=== PATIENT | male | born 1985 | race Caucasian/White ===

== ENCOUNTER 2016-05-26 22:31 | Emergency (ER) | payer BC, OTHER ==
[2016-05-26 22:39] VITALS: TEMP 98.3
[2016-05-26] MEDS ORDERED: HYDROcodone/APAP 5-325MG 1 EACH TAB PO STA (22:46)
--- NOTE | 2016-05-26 22:55 | ED ---
Back Pain HPI - General Chief Complaint: Back Pain/Injury Stated Complaint: [facility] Back injury Time Seen by Provider: 05/26/16 22:40 Source: patient, RN notes reviewed Limitations: no limitations - History of Present Illness Initial Comments: 30-year-old male presents to the emergency department with a chief complaint OF LOW BACK PAIN. 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 PATIENT FELT A POP IN HIS BACK. 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 HE WAS PUT ON SOME MUSCLE RELAXERS. PATIENT STATES SHE JUST CONTINUES TO HAVE THE PAIN. PATIENT ENTERS NOW. FALL. 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 PATIENT DENIES ANY LOSS OF BOWEL OR BLADDER FUNCTION. PATIENT DENIES ANY FEVER OR CHILLS. PATIENT STATES HE WAS CONCERNED DUE TO THE PAINS WITHOUT THAT HE SHOULD BE SEEN.Patient denies any recent fever, chills, shortness of breath, chest pain, abdominal pain, nausea vomiting, numbness or tingling, dysuria or hematuria, constipation or diarrhea, headaches or visual changes, or any other current symptoms. - Related Data Home Medications Medication Instructions Recorded Confirmed Carisoprodol [Soma] 350 mg PO TID 05/26/16 05/26/16 Dicyclomine [Bentyl] 20 mg PO BID 05/26/16 05/26/16 Omeprazole 20 mg PO DAILY 05/26/16 05/26/16 Pregabalin [Lyrica] 100 mg PO BID 05/26/16 05/26/16 traMADol HCL [Ultram] 50 mg PO Q4HR PRN 05/26/16 05/26/16 Previous Rx's Medication Instructions Recorded Orphenadrine [Norflex] 100 mg PO Q12H #10 tablet.er 05/26/16 Allergies Allergy/AdvReac Type Severity Reaction Status Date / Time No Known Allergies Allergy Verified 05/26/16 22:51 Review of Systems ROS Statement: Those systems with pertinent positive or pertinent negative responses have been documented in the HPI. ROS Other: All systems not noted in ROS Statement are negative. Past Medical History Past Medical History: No Reported History History of Any Multi-Drug Resistant Organisms: MRSA Date of last positivie culture/infection: 08/2014 MDRO Source:: left AC Additional Past Surgical History / Comment(s): Ear surgrey Past Psychological History: Anxiety Smoking Status: Current every day smoker Past Alcohol Use History: None Reported Past Drug Use History: None Reported General Exam Limitations: no limitations General appearance: alert, in no apparent distress Head exam: Present: atraumatic, normocephalic, normal inspection Neck exam: Present: normal inspection. Absent: tenderness, meningismus, lymphadenopathy Respiratory exam: Present: normal lung sounds bilaterally. Absent: respiratory distress, wheezes, rales, rhonchi, stridor Cardiovascular Exam: Present: regular rate, normal rhythm, normal heart sounds. Absent: systolic murmur, diastolic murmur, rubs, gallop, clicks Extremities exam: Present: normal inspection, full ROM, normal capillary refill. Absent: tenderness, pedal edema, joint swelling, calf tenderness Back exam: Present: normal inspection, full ROM. Absent: tenderness, CVA tenderness (R), CVA tenderness (L), muscle spasm, paraspinal tenderness, vertebral tenderness, rash noted Expanded Back exam: Absent: saddle anesthesia Back exam: Negative Straight Leg Raising: Right, Left Neurological exam: Present: alert, oriented X3, CN II-XII intact. Absent: motor sensory deficit Psychiatric exam: Present: normal affect, normal mood Skin exam: Present: warm, dry, intact, normal color. Absent: rash Course Vital Signs 05/26/16 22:36 Temperature 98.3 F Pulse Rate 6 L Respiratory 18 Rate Blood Pressure 119/60 O2 Sat by Pulse 97 Oximetry Medical Decision Making - Medical Decision Making 30-year-old male presents to the emergency department with a chief complaint of lumbar pain after lifting. The patient denies a complaint of low back pain however he goes from laying down to crossing his legs and sitting up without assistance of the arms without any change in facial recognition. This time is requesting stronger pain medication and tramadol. We discussed that we will add Motrin the anti-inflammatory to the Abbi should help with the symptoms. We did give him follow-up with orthopedic due to the fact that she does have a disc height narrowing that he was informed. Patient stated he understood all cushions were answered. He will be discharged. Disposition Clinical Impression: Strain of lumbar region Disposition: HOME SELF-CARE Condition: Stable Instructions: Acute Low Back Pain (ED) Additional Instructions: Please use medication as discussed. Please follow up with family doctor if symptoms have not improved over the next two days. Please return to the emergency room if your symptoms increase or worsen or for any other concerns. Prescriptions: Orphenadrine [Norflex] 100 mg PO Q12H #10 tablet.er Referrals: Olaf Ronquillo MD [Primary Care Provider] - 1-2 days Sampson Lemon DO [Doctor of Osteopathic Medicine] - 1-2 days Time of Disposition: 23:43
--- NOTE | 2016-05-26 23:37 | XR ---
EXAMINATION TYPE: XR lumbar spine 2 or 3V DATE OF EXAM: 05/26/2016 10:59 PM CLINICAL HISTORY: Lifting injury to the lower back, pain. TECHNIQUE: Frontal, lateral images of the lumbar spine are obtained. COMPARISON: None FINDINGS: There are 5 lumbar type vertebral bodies identified. The lumbar spine shows satisfactory alignment without evidence of acute fracture or dislocation. There is minor disc space narrowing at L5-S1. Body heights are grossly unremarkable. IMPRESSION: 1. No acute fracture or dislocation is seen in the lumbar spine. 2. Minor disc space narrowing at L5- S1.
[2016-05-27 00:21] VITALS: BP 117/62; PULSE 64; RESP 16
== END 2016-05-27 00:16 | disposition home or self-care (01) ==
LOC: EC 22:31
DX: S39.012A Strain of muscle, fascia and tendon of lower back, initial encounter (principal); Z79.899 Other long term (current) drug therapy; F17.200 Nicotine dependence, unspecified, uncomplicated; X50.0XXA Overexertion from strenuous movement or load, initial encounter; Y93.89 Activity, other specified; Y99.0 Civilian activity done for income or pay
CPT/HCPCS: 72100; 99283

== ENCOUNTER → 2016-05-29 | Outpatient (CLI) | payer BC, OTHER ==
--- NOTE | 2016-05-29 16:54 | US ---
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 Left anterior neck palp area GLAND SIZE: Right Lobe: 5.4 x 1.5 x 1.6 cm Overall Parenchyma: homogenous Left Lobe: 5.5 x 4.2 x 3.0 cm Overall Parenchyma: homogeneous Isthmus Thickness: 0.2 cm NODULES RIGHT: # of nodules measured on right: 0 LEFT: # of nodules measured on left: 1 1. 4.2 X 3.8 x 2.4 cm isoechoic solid nodule at the mid pole with well-defined margins. This nodul e is wider than tall and shows intranodular vascularity. ISTHMUS: # of nodules measured in the isthmus: 0 TECHNOLOGIST IMPRESSION: Bilateral neck scanned, no abnormal lymphadenopathy noted. Note: Anterior palpable corresponds with left nodule IMPRESSION: Left thyroid lobe is asymmetrically enlarged in size due to a dominant 4.2 cm isoechoic solid nodule, neoplasm needs to BE excluded, further investigation with ultrasound guided fine-needle aspiration i s advised.
== END | disposition home or self-care (01) ==
LOC: RADUSWWP 07:58
PROVIDERS: ATTEND Family Medicine
DX: E04.9 Nontoxic goiter, unspecified (principal)
CPT/HCPCS: 76536

== ENCOUNTER 2016-06-10 03:14 | Emergency (ER) | payer BC, OTHER ==
--- NOTE | 2016-06-10 03:17 | ED ---
General Adult HPI - General Stated complaint: overdose Time Seen by Provider: 06/10/16 03:15 Source: RN notes reviewed, old records reviewed - History of Present Illness Initial comments: This is a 30-year-old male here for evaluation. Patient presents today for evaluation of overdose. He shows found down by friends and EMS was called the patient's us regarding overdose. Patient's has [place] medical history denies any other drugs or alcohol abuse. At this time patient is awake alert answering [place] questions, denies homicidal or suicidal thoughts, was using [employer] - Related Data Home Medications Medication Instructions Recorded Confirmed Carisoprodol [Soma] 350 mg PO TID PRN 05/26/16 06/06/16 Dicyclomine [Bentyl] 20 mg PO BID 05/26/16 06/06/16 Omeprazole 20 mg PO DAILY 05/26/16 06/06/16 Pregabalin [Lyrica] 100 mg PO BID 05/26/16 06/06/16 LORazepam [Ativan] 2 mg PO BID 06/06/16 06/06/16 Allergies Allergy/AdvReac Type Severity Reaction Status Date / Time No Known Allergies Allergy Verified 05/26/16 22:51 Review of Systems ROS Statement: Those systems with pertinent positive or pertinent negative responses have been documented in the HPI. ROS Other: All systems not noted in ROS Statement are negative. Past Medical History Past Medical History: Thyroid Disorder Additional Past Medical History / Comment(s): palpable nodule of thyroid History of Any Multi-Drug Resistant Organisms: MRSA Date of last positivie culture/infection: 08/2014 MDRO Source:: left AC Additional Past Surgical History / Comment(s): Ear surgrey Past Psychological History: Anxiety Additional Psychological History / Comment(s): anxiety disorder Smoking Status: Current every day smoker Past Alcohol Use History: None Reported Past Drug Use History: None Reported General Exam General appearance: alert, in no apparent distress Head exam: Present: atraumatic, normocephalic, normal inspection Eye exam: Present: normal appearance, PERRL, EOMI. Absent: scleral icterus, conjunctival injection, periorbital swelling ENT exam: Present: normal exam, mucous membranes moist Neck exam: Present: normal inspection. Absent: tenderness, meningismus, lymphadenopathy Respiratory exam: Present: normal lung sounds bilaterally. Absent: respiratory distress, wheezes, rales, rhonchi, stridor Cardiovascular Exam: Present: regular rate, normal rhythm, normal heart sounds. Absent: systolic murmur, diastolic murmur, rubs, gallop, clicks GI/Abdominal exam: Present: soft, normal bowel sounds. Absent: distended, tenderness, guarding, rebound, rigid Extremities exam: Present: normal inspection, full ROM, normal capillary refill. Absent: tenderness, pedal edema, joint swelling, calf tenderness Back exam: Present: normal inspection Neurological exam: Present: alert, oriented X3, CN II-XII intact Psychiatric exam: Present: normal affect, normal mood Skin exam: Present: warm, dry, intact, normal color. Absent: rash Course - Reevaluation(s) Reevaluation #1: 06/10/16 03:16 Patient remains awake and alert, oriented, normal vital signs throughout hospital stay of breath Medical Decision Making - Medical Decision Making Plan now the ER status post overdose, was given Narcan, patient is awake alert remains awake alert denies any other drugs or any other substance abuse, patient not homicidal or suicidal and can be discharged home Disposition Clinical Impression: Heroin overdose Disposition: HOME SELF-CARE Condition: Good Instructions: Narcotic Abuse (ED) Referrals: Naren Castro MD [Primary Care Provider] - 1-2 days
[2016-06-10 03:18] VITALS: BP 138/94; PULSE 67; RESP 18; TEMP 97.8
== END 2016-06-10 03:56 | disposition home or self-care (01) ==
LOC: EC 03:14
DX: T40.1X1A Poisoning by heroin, accidental (unintentional), initial encounter (principal); R40.20 Unspecified coma; F41.9 Anxiety disorder, unspecified; F17.200 Nicotine dependence, unspecified, uncomplicated; Z79.899 Other long term (current) drug therapy; Z86.14 Personal history of Methicillin resistant Staphylococcus aureus infection
CPT/HCPCS: 99284

== ENCOUNTER 2016-06-16 12:31 | Day surgery (SDC) | payer BC, OTHER ==
[2016-06-16] MEDS ORDERED: ALPRAZolam 0.5 MG TAB PO STA (13:36)
[2016-06-16 14:10] VITALS: PULSE 81; RESP 14
[2016-06-16 14:28] VITALS: BP 110/63
--- NOTE | 2016-06-16 15:00 | US ---
EXAMINATION TYPE: US FNA thyroid DATE OF EXAM: 06/16/2016 2:29 PM COMPARISON: NONE HISTORY: Thyroid nodule, E04.1 Maximal barrier technique was utilized. Ultrasound using sterile technique. The skin overlying the no dule was localized with ultrasound and the overlying skin prepped and draped. Lidocaine used for loca l anesthesia. 5 passes with a 25-gauge needle were made into the nodule under ultrasound guidance. As pirate specimen submitted to cytology. Following the procedure hemostasis achieved. No immediate comp lication IMPRESSION: Status post ultrasound-guided fine-needle aspiration of thyroid nodule, pathology pending .
== END 2016-06-16 14:38 | disposition home or self-care (01) ==
LOC: RADPROMAIN 12:31
PROVIDERS: ATTEND Surgery
DX: E04.1 Nontoxic single thyroid nodule (principal)
CPT/HCPCS: 10022; 76942; 84439; 84443; 84481; 88173; 88305

== ENCOUNTER → 2016-06-27 | Outpatient (CLI) | payer BC, OTHER ==
--- NOTE | 2016-06-27 17:06 | CT ---
EXAMINATION TYPE: CT soft tissue neck w con DATE OF EXAM: 06/27/2016 1:24 PM COMPARISON: NONE HISTORY: Thyroid CA CT DLP: 719 mGycm CONTRAST: Patient injected with 100 ml mL of Omnipaque 300. TECHNIQUE: Axial images at 3 mm thick sections. Reconstructed images in the coronal plane and sagitt al plane are reviewed. FINDINGS: Limited CT sections are obtained the lung apices. The lung apices appear clear. CT neck: The torus tubarius and fossa of Rosenmuller are normal. Punch Card Operator spaces are normal. Para nasal sinuses and mastoid air cells are clear. Parotid glands appear normal and symmetrical. Left submandibular gland appears normal. Right submandi bular gland may be somewhat full. Parapharyngeal spaces are normal. No suspicious adenopathy is evid ent. There are a few small submental lymph nodes present. The hypopharynx appears within normal limits. Vocal cord level appear symmetrical. Left lobe thyroid is enlarged and slightly heterogenous. This could correlate with the patient's thyr oid cancer. This correlates with the level of the BB. No supraclavicular adenopathy is evident. Osseous structures are normal. IMPRESSIONS: 1. Enlarged left lobe thyroid corresponds to the palpable marker within the low left neck. By history the patient has thyroid cancer with recent fine-needle biopsy 06/16/2016. Slight diffuse fullness in otherwise normal-appearing right submandibular gland.
== END ==
LOC: RADCTMAIN 12:46
PROVIDERS: ATTEND Surgery
DX: E04.9 Nontoxic goiter, unspecified (principal); C73 Malignant neoplasm of thyroid gland
CPT/HCPCS: 70491; Q9967

== ENCOUNTER → 2016-06-27 | Outpatient (CLI) | payer BC, OTHER ==
--- NOTE | 2016-06-27 15:00 | US ---
EXAMINATION TYPE: US venous doppler duplex LE RT DATE OF EXAM: 06/27/2016 2:14 PM COMPARISON: NONE CLINICAL HISTORY: I80.9 PHLEBITIS. Grayscale, color Doppler, spectral Doppler imaging performed of the deep veins of the right lower ext remity. Right common femoral, superficial femoral, popliteal veins all compress normally and show no abnormal luminal echoes. Venous waveforms are normal. IMPRESSION: No evident deep venous thrombosis involving the right lower extremity, follow-up as beth cated
== END | disposition home or self-care (01) ==
LOC: RADUSMAIN 12:37
PROVIDERS: ATTEND Orthopaedic Surgery
DX: I80.9 Phlebitis and thrombophlebitis of unspecified site (principal)

== ENCOUNTER 2016-07-29 07:47 | Observation (INO) | payer BC, OTHER ==
[2016-07-21 10:34] VITALS: BMI 26.1
[~2016-07-29 07:47] MED LIST: DEXAMETHASONE SOD PHOSPHATE 10 MG/ML 1 ML VIAL IV ONE; HEPARIN SODIUM,PORCINE 5,000 UNIT/ML 1 ML VIAL SQ ONE; LIDOCAINE 1% 20 ML VIAL (10MG/ML) FOR IV START INTRADERMA PRN; ONDANSETRON 4 MG/2 ML VIAL IVP ONE; Pre Op ABX Message 1 EACH MISC MISCELLANE ONE; SCOPOLAMINE 1.5MG/72HR PATCH TRANSDERM ONE
[2016-07-29] MEDS: LACTATED RINGERS 1,000 ML IV SCH (08:15)
[2016-07-29] MEDS ORDERED: HEPARIN SODIUM,PORCINE 5,000 UNIT/ML 1 ML VIAL SQ ONE (09:02)
[2016-07-29] MEDS ORDERED: PHENYLEPHRINE-0.9% NACL SYG 1 MG/10 ML SYRINGE ONE (09:04)
[2016-07-29] MEDS ORDERED: KETAMINE 10 MG/ML 20 ML VIAL ONE (09:04)
[2016-07-29] MEDS ORDERED: SUCCINYLCHOLINE CHLORIDE 100 MG/5 ML SYR IV ONE (09:04)
[2016-07-29] MEDS ORDERED: MIDAZOLAM 2 MG/2 ML VIAL ONE (09:04)
[2016-07-29] MEDS ORDERED: LIDOCAINE 1% INJ 10MG/ML (20 ML MDV) ONE (09:04)
[2016-07-29] MEDS ORDERED: GLYCOPYRROLATE 0.2 MG/ML 2 ML VIAL ONE (09:04)
[2016-07-29] MEDS ORDERED: HYDROmorphone (PF) 1 MG/ML ONE (09:04)
[2016-07-29] MEDS ORDERED: PROPOFOL 10 MG/ML 20 ML VIAL IV ONE (09:04)
[2016-07-29] MEDS ORDERED: fentaNYL (PF) 50 MCG/ML 2 ML AMP ONE (09:04)
--- NOTE | 2016-07-29 09:06 | P.PN ---
Progress Note - Text I have had a discussion with patient regarding his voice. He states that he has had no recent voice changes. We talked again about him potentially seen in ENT doctor preoperative to evaluate the vocal cords and he states he has not had any recent voice changes and did not want this to be done. He understands the risks and benefits of the procedure. The risks include bleeding and infection reaction to the anesthetic injury to recurrent laryngeal nerve and parathyroids. He wishes to proceed with the surgery. We will start with a left -sided thyroidectomy and as long as all anatomy can be well seen proceed with a total thyroidectomy and removal of any enlarged lymph nodes and central neck lymph nodes.
[2016-07-29] MEDS ORDERED: SODIUM CHLORIDE 0.9% 50 ML with ceFAZolin 2,000 MG IV ONE ×2 (09:29)
[2016-07-29] MEDS ORDERED: LACTATED RINGERS 1,000 ML IV ONE ×4 (10:57)
[2016-07-29] MEDS ORDERED: NALOXONE 0.4 MG/ML 1 ML VIAL IV PRN (12:20)
[2016-07-29] MEDS ORDERED: ONDANSETRON 4 MG/2 ML VIAL IVP PRN (12:20)
--- NOTE | 2016-07-29 12:20 | P.OP ---
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 Postoperative Diagnosis: Papillary carcinoma of thyroid left lobe no adenopathy of concern Procedure(s) Performed: Total thyroid resection, removal of tissue over the trachea Anesthesia: KATHI Surgeon: Adia Huffman Warehouse Shipper #1: Belkys Perez Estimated Blood Loss (ml): 20 IV fluids (ml): 1,100 Urine output (ml): 950 Pathology: other (total thyroid) Condition: stable Disposition: PACU Indications for Procedure: Carcinoma left lobe of the thyroid Operative Findings: Large firm nodule left lobe of thyroid inferior Description of Procedure: Indications for procedure: Patient is a 30-year-old with a biopsy-proven papillary carcinoma of the left lobe of the thyroid. Risks and benefits were discussed with the patient and he wishes to proceed with surgical resection. Patient was taken to the operating room and following induction of general anesthesia the neck was prepped and draped in a sterile fashion. Prior to this probes for nerve stimulator were placed on the anterior chest wall after prepping using alcohol. Following induction of general anesthesia the neck was prepped and draped in a sterile fashion. A collar incision was made and carried through the skin and subcutaneous tissue. This catheter to the platysma which was and superior and inferior skin flaps were developed. Following this the strap muscles were in the midline. The left lobe of the thyroid was approached initially. The inferior pole was very firm and enlarged. We were able to dissect this free from the surrounding tissues using sharp dissection and ligating any vessels of concern. The superior pole vessels were identified these were ligated and divided as well. The lobe was rotated medially. The superior inferior parathyroids were identified and preserved. The recurrent laryngeal nerve was identified and preserved. The lobe was rotated onto the trachea. Careful dissection was performed to remove the soft tissues on the trachea. Following this after assured that hemostasis was attained the right lobe of the thyroid was approached. The superior pole was identified superior pole vessels were identified these were ligated and divided. Inferior pole vessels were ligated and divided as well. The was rotated medially being careful to identify and preserve both superior and inferior parathyroid glands. The recurrent laryngeal nerve was likewise identified and preserved. The lobe was rotated up onto the trachea. Careful palpation in the neck did not reveal any adenopathy of concern. Soft tissues on the neck and the trachea where I removed with the specimen. After the specimen had been removed and sutures were placed to identify both right and left superior poles. After assured that hemostasis was attained the wound was well irrigated. A [place] drain was placed. The strap muscles were closed in the midline using a 3-0 Vicryl suture. This is followed by closure of the platysma with a 3-0 Vicryl suture. The skin was reapproximated using 4-0 Monocryl. Patient tolerated procedure in stable condition. The drain was secured using a nylon suture. All instrument and sponge counts were correct at the end of the case. The patient tolerated the procedure in stable condition.
[2016-07-29] MEDS: HYDROmorphone 1 MG/ML 1 ML SYRINGE IVP PRN ×2 (12:29→12:48)
[2016-07-29] MEDS: HYDROcodone/APAP 5-325MG 1 EACH TAB PO PRN ×2 (14:47→18:21)
[2016-07-29 15:13] VITALS: RESP 16
[2016-07-29] MEDS: DEXTROSE 5%-0.45% NACL 1,000 ML IV SCH (15:13)
[2016-07-29] MEDS: HYDROmorphone 1 MG/ML 1 ML SYRINGE IV PRN ×3 (15:52→22:20)
[2016-07-29] MEDS: HEPARIN SODIUM,PORCINE 5,000 UNIT/ML 1 ML VIAL SQ SCH (15:53)
[2016-07-29] MEDS ORDERED: DICYCLOMINE 20 MG TAB PO PRN (16:12)
[2016-07-29] MEDS: CALCIUM CARB-VIT D 500MG-200UN 1 EACH TAB PO SCH (16:50)
[2016-07-29] MEDS: PREGABALIN 100 MG CAP PO SCH (21:42)
[2016-07-29] MEDS: LORazepam 1 MG TAB PO SCH (21:42)
[2016-07-29] MEDS: FAMOTIDINE 20 MG TAB PO SCH (22:20)
--- NOTE | 2016-07-29 23:37 | CONS ---
DATE OF CONSULTATION: REASON FOR CONSULTATION: Advice regarding cardiac arrhythmia and other multiple medical issues requested by Dr. Ronquillo. HISTORY OF PRESENT ILLNESS: This 30-year-old gentleman with a past history of multiple medical problems including GERD, hypothyroidism, history of GERD, thyroid disorder, history of heart murmur, history of MRSA, history of anxiety being followed by Dr. Guaman in the outpatient setting also was found to have papillary carcinoma of the left lobe of the thyroid. Patient underwent total thyroid dissection with removal of the tissue over the trachea by Dr. Huffman. There is no history of any fever, rigors or chills. No history of headache, loss of consciousness or seizures. Occasional irregularity in the pulse rate is noted. Past medical history of thyroid disorder, history of migraine. History of MRSA, history of gastroesophageal reflux disease. Medications prior to admission include: 1. Suboxone 8 mg p.o. daily. 2. Lyrica 100 milligrams p.o. b.i.d. 3. Omeprazole 20 mg daily. 4. Ativan 2 mg p.o. b.i.d. 5. Bentyl 20 mg b.i.d. p.r.n. 6. Adderall 20 mg daily. 7. Baclofen 10 mg b.i.d. ALLERGIES: None. FAMILY HISTORY: No history of heart disease or stroke in the family. SOCIAL HISTORY: History of smoking on a daily basis. No history of alcohol intake. REVIEW OF SYSTEMS: ENT: No diminishing hearing. Diminished vision. Otherwise, mentioned earlier. CARDIOVASCULAR: As mentioned earlier. Respiratory: No cough. GI: No nausea. : No dysuria. Nervous system: No numbness, weakness. Allergy/immunology: No asthma or hayfever. MUSCULOSKELETAL: As mentioned earlier. HEMATOLOGY/ONCOLOGY: No history of anemia. ENDOCRINE: No history of diabetes or hypothyroidism. CONSTITUTIONAL: as mentioned earlier. DERMATOLOGY: Negative. RHEUMATOLOGY: Negative. PSYCHIATRY: As mentioned earlier. PHYSICAL EXAMINATION: The patient is alert and oriented times three. Pulse 83, blood pressure 153/81, respiratory rate 16, temperature 97.9, pulse ox 94% on room air. Occasional irregularity noted. HEENT: Conjunctivae normal. Oral mucosa moist. NECK: Status post thyroid surgery. CARDIOVASCULAR: occ irregular. No murmur. No thrills. RESPIRATORY: Breath sounds diminished at the bases. No rhonchi. No crackles. ABDOMEN: Soft, nontender. No mass palpable. No hepatosplenomegaly. LEGS: No edema. CENTRAL NERVOUS SYSTEM: No focal deficits. SKIN: NO ulcer, rash or bleeding. LYMPHATICS: No lymph nodes palpable in the neck, axillae or groin. LABS: Calcium 9.9. ASSESSMENT: 1. Status post total thyroidectomy for papillary carcinoma of thyroid left lobe. 2. History of migraines. 3. History of degenerative joint disease. 4. History of Methicillin-resistant Staph aureus. 5. History of anxiety, not otherwise specified. 6. History of gastroesophageal reflux disease. RECOMMENDATIONS AND DISCUSSION: In this 30-year-old gentleman who presented with multiple complex medical issues. We will monitor the patient closely. Continue the current medications. Continue symptomatic treatment. Once the patient is p.o. I recommend resuming the home medications. Otherwise, we will follow the patient closely with you. Patient may be asked to follow up with a primary physician closely after discharge, We will follow the patient closely. I would also recommend EKG and remote tele also. I will follow the patient closely with you. Thank you, Dr. Lucas for letting us participate in the care of this patient. RIMMA
[2016-07-30] MEDS: DEXTROSE 5%-0.45% NACL 1,000 ML IV SCH ×3 (00:43→23:57)
[2016-07-30] MEDS: HEPARIN SODIUM,PORCINE 5,000 UNIT/ML 1 ML VIAL SQ SCH ×4 (00:43→23:58)
[2016-07-30] MEDS: HYDROcodone/APAP 5-325MG 1 EACH TAB PO PRN ×6 (00:46→23:14)
[2016-07-30] MEDS: HYDROmorphone 1 MG/ML 1 ML SYRINGE IV PRN ×3 (02:23→10:02)
[2016-07-30] MEDS: LACTATED RINGERS 1,000 ML IV SCH (04:13)
[2016-07-30] MEDS ORDERED: PANTOPRAZOLE 40 MG TABLET PO SCH (07:30)
[2016-07-30] MEDS ORDERED: NICOTINE 21MG/24HR PATCH TRANSDERM STA (07:40)
[2016-07-30] MEDS: LORazepam 1 MG TAB PO SCH ×2 (08:46→21:07)
[2016-07-30] MEDS: CALCIUM CARB-VIT D 500MG-200UN 1 EACH TAB PO SCH ×2 (08:46→14:47)
[2016-07-30] MEDS: PREGABALIN 100 MG CAP PO SCH ×2 (08:46→21:07)
[2016-07-30] MEDS: FAMOTIDINE 20 MG TAB PO SCH (08:47)
[2016-07-30] MEDS ORDERED: NON-FORMULARY DRUG (Dextroamphetamine/Amphetamine [Adderall] 20 MG) PO SCH (09:00)
[2016-07-30] MEDS ORDERED: SUBOXONE 8 MG PO SCH (09:00)
[2016-07-30] MEDS: BACLOFEN 10 MG TAB PO SCH ×2 (10:06→21:07)
--- NOTE | 2016-07-30 12:43 | P.CNEND ---
History of Present Illness Consult date: 07/29/16 Consult reason: Diabetes or abnormal blood glucose management, Abnormal thyroid function tests, Abnormal blood calcium, Adrenal insufficiency evaluation and/or management, Endocrine gland tumor (thyroid, adrenal, pituitary) (thyroid cancer) , other History of present illness: Patient's 30-year-old male who had total thyroidectomy done yesterday. Patient had thyroid nodule. Upon FNA he was found to have papillary thyroid cancer. Patient underwent total thyroidectomy. Postoperatively he is doing well. Patient denies any change in his voice, hoarseness of voice. No history of numbness tingling muscle spasm. No history of swallowing difficulties No previous history of hypothyroidism. Patient is currently not on any thyroid hormone replacement Review of Systems All systems: negative Constitutional: Denies chills, Denies fever Eyes: denies blurred vision, denies pain Cardiovascular: Denies chest pain, Denies shortness of breath Respiratory: Denies cough Gastrointestinal: Denies abdominal pain, Denies diarrhea, Denies nausea, Denies vomiting Musculoskeletal: Denies myalgias Integumentary: Denies pruritus, Denies rash Neurological: Denies numbness, Denies weakness Psychiatric: Denies anxiety, Denies depression Endocrine: Denies fatigue, Denies weight change Past Medical History Past Medical History: GERD/Reflux, Thyroid Disorder Additional Past Medical History / Comment(s): migraines, told heart murmer, thyroid cancer, arthritis, History of Any Multi-Drug Resistant Organisms: MRSA Date of last positivie culture/infection: 08/2014 MDRO Source:: left arm Past Surgical History: Ear Surgery, Hernia Repair Additional Past Surgical History / Comment(s): surgery for abscess on left arm from spider bite Past Anesthesia/Blood Transfusion Reactions: Motion Sickness Past Psychological History: Anxiety Additional Psychological History / Comment(s): . Smoking Status: Current every day smoker Past Alcohol Use History: None Reported Additional Past Alcohol Use History / Comment(s): smokes 3-4 cigarettes daily for 10 yrs Past Drug Use History: None Reported - Past Family History Mother Family Medical History: No Reported History Medications and Allergies Home Medications Medication Instructions Recorded Confirmed Type Dicyclomine [Bentyl] 20 mg PO BID PRN 05/26/16 07/29/16 History Omeprazole 20 mg PO DAILY 05/26/16 07/29/16 History Pregabalin [Lyrica] 100 mg PO BID 05/26/16 07/29/16 History LORazepam [Ativan] 2 mg PO BID 06/06/16 07/29/16 History Baclofen 10 mg PO BID 07/21/16 07/29/16 History Dextroamphetamine/Amphetamine 20 mg PO DAILY 07/21/16 07/29/16 History [Adderall] Buprenorphine HCl/Naloxone HCl 1 tab SL DAILY 07/29/16 07/29/16 History [Buprenorphin-Naloxon 8-2 mg Sl] Allergies Allergy/AdvReac Type Severity Reaction Status Date / Time No Known Allergies Allergy Verified 07/29/16 08:04 Physical Exam Vitals: Vital Signs Temp Pulse Pulse Resp BP Pulse Ox 07/30/16 08:45 97.9 F 65 16 117/66 95 07/30/16 00:15 97.9 F 76 16 116/59 97 07/29/16 20:00 80 86 07/29/16 19:13 98.1 F 86 16 124/77 98 07/29/16 16:00 80 83 16 07/29/16 14:30 97.7 F 83 16 153/81 95 07/29/16 14:15 81 153/77 95 07/29/16 13:41 80 18 143/82 96 07/29/16 13:26 72 20 148/83 97 07/29/16 13:11 86 18 124/84 96 07/29/16 12:56 95 18 135/81 98 07/29/16 12:41 104 H 18 151/83 98 Intake and Output 07/29/16 07/30/16 07/30/16 22:59 06:59 14:59 Intake Total 900 800 Output Total 950 Balance -50 800 Intake: IV 400 800 Dextrose 5%-0.45% NaCl 1, 400 800 000 ml @ 100 mls/hr IV . Q10H JESUS ALBERTO Rx#:[id number] Oral 500 Output: Urine 950 Other: Voiding Method Toilet Toilet # Voids 1 2 Weight 89.811 kg - Constitutional General appearance: no acute distress - EENT Eyes: EOMI - Neck Neck: no lymphadenopathy - Respiratory Respiratory: bilateral: CTA - Cardiovascular Heart sounds: normal: S1, S2 - Gastrointestinal General gastrointestinal: no organomegaly, soft, no tenderness - Neurologic Neurologic: CNII-XII intact, focal deficits - Psychiatric Psychiatric: A&O x's 3 Results - Labs Diabetes panel 07/29/16 07/29/16 07/29/16 Range/Units 08:20 12:47 19:26 Calcium 9.7 9.9 9.3 (8.4-10.2) mg/dL 07/30/16 07/30/16 Range/Units 01:14 07:33 Calcium 9.1 9.3 (8.4-10.2) mg/dL Calcium panel 07/29/16 07/29/16 07/29/16 Range/Units 08:20 12:47 19:26 Calcium 9.7 9.9 9.3 (8.4-10.2) mg/dL 07/30/16 07/30/16 Range/Units 01:14 07:33 Calcium 9.1 9.3 (8.4-10.2) mg/dL Pituitary panel 07/29/16 07/29/16 07/29/16 Range/Units 08:20 12:47 19:26 Calcium 9.7 9.9 9.3 (8.4-10.2) mg/dL 07/30/16 07/30/16 Range/Units 01:14 07:33 Calcium 9.1 9.3 (8.4-10.2) mg/dL Adrenal panel 07/29/16 07/29/16 07/29/16 Range/Units 08:20 12:47 19:26 Calcium 9.7 9.9 9.3 (8.4-10.2) mg/dL 07/30/16 07/30/16 Range/Units 01:14 07:33 Calcium 9.1 9.3 (8.4-10.2) mg/dL Assessment and Plan (1) Thyroid cancer Status: Acute (2) Hypocalcemia Status: Acute Plan: Patient is status post total thyroidectomy. He is recovering very well. Patient's calcium levels postoperatively has been normal. Clinically no signs of hypocalcemia We'll follow patient as an outpatient in 1-2 weeks. We will go over surgical pathology and determine the need for radioactive iodine treatment of thyroid cancer was discussed with the family. All the questions were answered We'll evaluate the need for thyroid hormone replacement as an outpatient in 1week
--- NOTE | 2016-07-30 13:15 | P.DS ---
Providers Date of admission: 07/29/16 22:45 Expected date of discharge: 07/31/16 Attending physician: Adia Huffman Consults: 07/29/16 12:22 Consult Physician Routine Consulting Provider: Judith Gonzalez Consult Reason/Comments: total thyroidectomy, thyroid cancer Do you want consulting provider notified?: Yes Consult Physician Routine Consulting Provider: Vero Qureshi Consult Reason/Comments: medical managment Do you want consulting provider notified?: Yes Primary care physician: Stated None Hospital Course: Patient's 30-year-old male who had total thyroidectomy done on July 29 Patient had thyroid nodule. Upon FNA he was found to have papillary thyroid cancer. Patient underwent total thyroidectomy. Postoperatively he is doing well. Patient denies any change in his voice, hoarseness of voice. No history of numbness tingling muscle spasm. No history of swallowing difficulties No previous history of hypothyroidism. Patient is currently not on any thyroid hormone replacement The drain from the thyroid site was removed Patient was seen by Dr. Gonzalez endocrinology for the thyroid. The plan is the patient will be seen in the office in one week and they will evaluate the need for thyroid hormone replacement therapy in the outpatient setting additionally the path surgical pathology report will be reviewed and they will determine the need for radioactive iodine treatment of the thyroid cancer this was discussed with the patient and the patient's family Patient is a 30-year-old with a biopsy-proven papillary carcinoma of the left lobe of the thyroid. Impression discharge diagnosis Large firm nodule left lobe of thyroid inferior operative findings biopsy-proven papillary carcinoma of the left lobe of the thyroid. Done on 07/29/2016 Total thyroid resection, removal of tissue over the trachea The above dictated assessment and findings were discussed with dr salazar . Impression and the plan of care have been dictated as directed. Katie Weston nurse practitioner acting as a scribe for dr Lainez Plan - Discharge Summary New Discharge Prescriptions: Calcium Carb-Vit D 500Mg-200Un [Oscal 500+D] 2 each PO BID #80 tablet HYDROcodone/APAP 5-325MG [[place] 5-325] 1 each PO Q8H PRN #20 tab PRN Reason: Moderate Pain Discharge Medication List Dicyclomine [Bentyl] 20 mg PO BID PRN 05/26/16 [History] Omeprazole 20 mg PO DAILY 05/26/16 [History] Pregabalin [Lyrica] 100 mg PO BID 05/26/16 [History] LORazepam [Ativan] 2 mg PO BID 06/06/16 [History] Baclofen 10 mg PO BID 07/21/16 [History] Dextroamphetamine/Amphetamine [Adderall] 20 mg PO DAILY 07/21/16 [History] Buprenorphine HCl/Naloxone HCl [Buprenorphin-Naloxon 8-2 mg Sl] 1 tab SL DAILY 07/29/16 [History] HYDROcodone/APAP 5-325MG [[place] 5-325] 1 each PO Q8H PRN #20 tab 07/30/16 [Rx] Calcium Carb-Vit D 500Mg-200Un [Oscal 500+D] 2 each PO BID #80 tablet 07/31/16 [ Rx] Follow up Appointment(s)/Referral(s): Judith Gonzalez MD [STAFF PHYSICIAN] - 2 Weeks Adia Huffman MD [STAFF PHYSICIAN] - 08/05/16 Activity/Diet/Wound Care/Special Instructions: Follow up with and have EKG done Discharge Disposition: HOME SELF-CARE
--- NOTE | 2016-07-30 15:48 | P.PN ---
Subjective 30-year-old being seen on with the surgical attending at the bedside this afternoon the dressing was changed at the surgical site [place] drain in place. Monitor amount of serous drainage noted on dressing. Postop no new events noted. Patient is status post total thyroidectomy done on July 29. P was found to have papillary thyroid cancer per FNA Objective - Vital Signs Vital signs: Vital Signs Temp 98.4 F 07/30/16 14:48 Pulse 63 07/30/16 14:48 Resp 16 07/30/16 14:48 BP 107/62 07/30/16 14:48 Pulse Ox 97 07/30/16 14:48 Intake & Output 07/29/16 07/30/16 07/30/16 18:59 06:59 18:59 Intake Total 2450 1200 Output Total 1920 Balance 530 1200 Weight 89.811 kg Intake: IV 1950 1200 Dextrose 5%-0.45% NaCl 1, 1200 000 ml @ 100 mls/hr IV . Q10H JESUS ALBERTO Rx#:[id number] Oral 500 Output: Urine 1900 Estimated Blood Loss 20 Other: Voiding Method Toilet # Voids 2 3 - Exam GENERAL APPEARANCE: 30-year-old patient is alert, oriented, in no acute distress. VITAL SIGNS: Reviewed HEENT: Head is normocephalic and atraumatic. Pupils are equal and reactive. The nares are patent. Oropharynx is clear without lesions. NECK: Supple without lymphadenopathy. Traches midline. Dressing to the surgical site dry no hoarseness noted in the voice HEART: S1, S2. Regular rate and rhythm. LUNGS: No crackles or wheezes are heard. ABDOMEN: Soft, nontender, nondistended with good bowel sounds. No peritoneal signs. No palpable organomegaly or masses. EXTREMITIES: Normal skin color and turgor. No cyanosis, rash, ulceration, clubbing or edema. Radial pedal pulses are 2/4 bilaterally. NEUROLOGICAL: No focal deficits. Strength and sensation are grossly intact. Assessment and Plan Plan: Impression discharge Large firm nodule left lobe of thyroid inferior operative findings biopsy-proven papillary carcinoma of the left lobe of the thyroid. Done on 07/29/2016 Total thyroid resection, removal of tissue over the trachea Plan Continue postop surgical care Anticipate discharge in the next 24 hours Further recommendations pending The above dictated assessment and findings were discussed with dr Yg Crow and the plan of care have been dictated as directed. Katie Weston nurse practitioner acting as a scribe for Dr. Lainez
[2016-07-31 01:25] VITALS: BP 107/59; PULSE 66; TEMP 97.1
[2016-07-31] MEDS: DEXTROSE 5%-0.45% NACL 1,000 ML IV SCH (05:33)
[2016-07-31] MEDS: HYDROcodone/APAP 5-325MG 1 EACH TAB PO PRN (05:33)
[2016-07-31] MEDS: LACTATED RINGERS 1,000 ML IV SCH (06:06)
--- NOTE | 2016-07-31 06:07 | P.PN ---
Subjective Patient postoperatively #2 total thyroidectomy for papillary carcinoma of the thyroid Patient is doing well at this time. He is tolerating diet without difficulty. His voice is strong. He has no numbness or tingling. The patient has minimal serous drainage from his Ray[place] drain at this time. The Rayne drain is going to be removed. Objective - Vital Signs Vital signs: Vital Signs Temp 97.1 F L 07/30/16 23:00 Pulse 66 07/30/16 23:00 Resp 16 07/30/16 23:00 BP 107/59 07/30/16 23:00 Pulse Ox 96 07/30/16 23:00 Intake & Output 07/30/16 07/30/16 07/31/16 06:59 18:59 06:59 Intake Total 1200 590 Balance 1200 590 Intake: IV 1200 Dextrose 5%-0.45% NaCl 1, 1200 000 ml @ 100 mls/hr IV . Q10H JESUS ALBERTO Rx#:[id number] Oral 590 Other: Voiding Method Toilet Toilet # Voids 2 3 2 - Constitutional General appearance: Present: average body habitus - Neck Details: Incision clean and dry Minimal drainage a Raven site - Respiratory Respiratory: bilateral: CTA - Cardiovascular Rhythm: regular Heart sounds: normal: S1, S2 - Gastrointestinal General gastrointestinal: Present: soft - Psychiatric Psychiatric: Present: A&O x's 3, appropriate affect, intact judgment & insight Assessment and Plan Plan: Impression/plan: 1. Patient status post total thyroidectomy for papillary carcinoma the thyroid 2. 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 Guaman with respect to this 3. Patient doing well at this time Plan: 1. Discharge home to be followed as an outpatient 2. Awaiting pathology as per Dr. Gonzalez prior to radioactive iodine 3. Patient to go home on [place] 4. Prolonged discussion with the patient in the presence of his nurse regarding opioid use and as per Dr. Guaman's recommendation he is going home on Vicodin, patient knows that he cannot use any other opioids
--- NOTE | 2016-07-31 06:14 | P.DS ---
Providers Date of admission: 07/29/16 22:45 Attending physician: Adia Huffman Consults: 07/29/16 12:22 Consult Physician Routine Consulting Provider: Judith Gonzalez Consult Reason/Comments: total thyroidectomy, thyroid cancer Do you want consulting provider notified?: Yes Consult Physician Routine Consulting Provider: Vero Qureshi Consult Reason/Comments: medical managment Do you want consulting provider notified?: Yes Primary care physician: Stated None Plan - Discharge Summary New Discharge Prescriptions: Calcium Carb-Vit D 500Mg-200Un [Oscal 500+D] 2 each PO BID #80 tablet HYDROcodone/APAP 5-325MG [[place] 5-325] 1 each PO Q8H PRN #20 tab PRN Reason: Moderate Pain Discharge Medication List Dicyclomine [Bentyl] 20 mg PO BID PRN 05/26/16 [History] Omeprazole 20 mg PO DAILY 05/26/16 [History] Pregabalin [Lyrica] 100 mg PO BID 05/26/16 [History] LORazepam [Ativan] 2 mg PO BID 06/06/16 [History] Baclofen 10 mg PO BID 07/21/16 [History] Dextroamphetamine/Amphetamine [Adderall] 20 mg PO DAILY 07/21/16 [History] Buprenorphine HCl/Naloxone HCl [Buprenorphin-Naloxon 8-2 mg Sl] 1 tab SL DAILY 07/29/16 [History] HYDROcodone/APAP 5-325MG [[place] 5-325] 1 each PO Q8H PRN #20 tab 07/30/16 [Rx] Calcium Carb-Vit D 500Mg-200Un [Oscal 500+D] 2 each PO BID #80 tablet 07/31/16 [ Rx] Follow up Appointment(s)/Referral(s): Adia Huffman MD [STAFF PHYSICIAN] - 08/05/16 Judith Gonzalez MD [STAFF PHYSICIAN] - 2 Weeks Activity/Diet/Wound Care/Special Instructions: Follow up with and have EKG done Discharge Disposition: HOME SELF-CARE
--- NOTE | 2016-07-31 06:58 | PN ---
DATE OF SERVICE: 07/30/2016 This 30-year-old gentleman who was admitted after total thyroidectomy for papillary carcinoma of thyroid is being closely monitored. No chest pain or palpitation. No fever. Surgery and as well as Endocrine are following the patient closely. Raven drain placed. On exam, alert and oriented x3. Pulse is 74, blood pressure 120/87, respiration 16, temperature 97.3, pulse ox 100% on room air. HEENT: Conjunctivae normal. NECK: Status post surgery. CARDIOVASCULAR: S1 and S2, muffled. No S3, no S4. RESPIRATORY: Breath sounds diminished at the bases. No rhonchi, no crackles. ABDOMEN: Soft, nontender. LEGS: No edema, no swelling. NERVOUS SYSTEM: No focal deficits. Labs are calcium is 9.1 and 9.3. ASSESSMENT: 1. Status post total thyroidectomy for papillary carcinoma of the thyroid left lobe. 2. History of migraines. 3. History of degenerative joint disease. 4. Possible occasional PVCs. 5. History of methicillin-resistant Staphylococcus aureus. 6. History of anxiety, not otherwise specified. 7. History of gastroesophageal reflux disease. RECOMMENDATIONS AND DISCUSSION: Recommend to continue the current medication. Continue symptomatic treatment. I would recommend the patient to follow with Dr. Guaman regarding further cardiac evaluation since the patient EKG. I would recommend to continue the other medications, DVT prophylaxis. Continued to monitor. Further recommendations to follow. MTDD
== END 2016-07-31 09:00 | disposition home or self-care (01) ==
LOC: OR 07:47 → 3SUR 13:51 → OR 22:45 → 3SUR 22:45
PROVIDERS: ADMIT Surgery; ATTEND Surgery
DX: C73 Malignant neoplasm of thyroid gland (principal); Z79.899 Other long term (current) drug therapy; F41.9 Anxiety disorder, unspecified; F17.200 Nicotine dependence, unspecified, uncomplicated; F32.9 Major depressive disorder, single episode, unspecified; R51 Headache; Z86.14 Personal history of Methicillin resistant Staphylococcus aureus infection; K21.9 Gastro-esophageal reflux disease without esophagitis; F11.20 Opioid dependence, uncomplicated
CPT/HCPCS: 60240; 82310 ×2; 88307; G0378 ×3; S4990; J2250; J1644 ×2; J1100; J2405; J2001; J3010; J1170 ×2; J0690; J2370; J0330; J2704; 96361; 96372; 96376

== ENCOUNTER → 2016-08-07 | Outpatient (CLI) | payer BC, OTHER ==
[2016-08-07 17:19] LABS: ALT 27 U/L (21-72); AST 16 U/L (17-59); Alkaline Phosphatase 69 U/L (38-126); Anion Gap 13 mmol/L; Blood Urea Nitrogen 14 mg/dL (9-20); Calcium 9.9 mg/dL (8.4-10.2); Carbon Dioxide 26 mmol/L (22-30); Chloride 102 mmol/L (98-107); Glucose 118 mg/dL (74-99); Non-African American GFR(MDRD) >60 (>60 ml/min/1.73 sqM); Potassium 3.9 mmol/L (3.5-5.1); Sodium 141 mmol/L (137-145); Total Bilirubin 0.4 mg/dL (0.2-1.3); Total Protein 7.5 g/dL (6.3-8.2)
[2016-08-07 17:34] LABS: Prolactin 18.3 ng/mL (3.7-17.9)
== END | disposition home or self-care (01) ==
LOC: LABWHC1 08:44
PROVIDERS: ATTEND Internal Medicine Endocrinology, Diabetes & Metabolism
DX: C73 Malignant neoplasm of thyroid gland (principal); E04.1 Nontoxic single thyroid nodule
CPT/HCPCS: 36415; 80053; 84146; 84432; 84439; 84443; 86800

== ENCOUNTER → 2016-08-25 | Outpatient (CLI) | payer BC, OTHER | END | disposition home or self-care (01) | LOC: LABWHC1 16:07 | PROVIDERS: ATTEND Internal Medicine Endocrinology, Diabetes & Metabolism | DX: E04.1 Nontoxic single thyroid nodule (principal) | CPT/HCPCS: 36415; 84439; 84443 ==

== ENCOUNTER → 2016-09-03 | Outpatient (CLI) | payer BC, OTHER | END | disposition home or self-care (01) | LOC: LABWHC1 13:01 | PROVIDERS: ATTEND Internal Medicine Endocrinology, Diabetes & Metabolism | DX: E89.0 Postprocedural hypothyroidism (principal) | CPT/HCPCS: 36415; 84443 ==

== ENCOUNTER 2016-10-10 02:57 | Emergency (ER) | payer BC, OTHER ==
--- NOTE | 2016-10-10 03:08 | ED ---
Overdose HPI - General Stated Complaint: Overdose Time Seen by Provider: 10/10/16 03:04 - History of Present Illness Initial Comments: This is a 30-year-old male with a history of thyroid cancer status post thyroidectomy presents emergency department for heroin overdose. Per EMS ,he was found on the side of the road hugging a street sign and very lethargic. EMS picked him up and stated that he was alert and oriented 4 however was very sleepy. The patient states he started using heroin when he found out a bit of his thyroid cancer. He denies any suicidal intent. Patient was escorted by police and EMS. The patient currently has no complaints however does fall asleep midsentence. - Related Data Home Medications Medication Instructions Recorded Confirmed Dicyclomine [Bentyl] 20 mg PO BID PRN 05/26/16 09/11/16 LORazepam [Ativan] 2 mg PO BID 06/06/16 10/01/16 Buprenorphine HCl/Naloxone HCl 4 mg SL DAILY 07/29/16 10/01/16 [Buprenorphin-Naloxon 8-2 mg Sl] Liothyronine Sodium [Cytomel] 25 mcg PO DAILY 09/11/16 10/01/16 Previous Rx's Medication Instructions Recorded Naloxone HCl [Evzio] 2 mg IJ ONCE PRN #1 auto.injct 10/10/16 Allergies Allergy/AdvReac Type Severity Reaction Status Date / Time No Known Allergies Allergy Verified 10/01/16 12:56 Review of Systems ROS Statement: Those systems with pertinent positive or pertinent negative responses have been documented in the HPI. ROS Other: All systems not noted in ROS Statement are negative. Past Medical History Past Medical History: GERD/Reflux, Thyroid Disorder Additional Past Medical History / Comment(s): migraines, told heart murmer, thyroid cancer, arthritis, History of Any Multi-Drug Resistant Organisms: MRSA Date of last positivie culture/infection: 08/2014 MDRO Source:: left arm Past Surgical History: Ear Surgery, Hernia Repair Additional Past Surgical History / Comment(s): surgery for abscess on left arm from spider bite Past Anesthesia/Blood Transfusion Reactions: Motion Sickness Past Psychological History: Anxiety Additional Psychological History / Comment(s): . Smoking Status: Current every day smoker Past Alcohol Use History: None Reported Additional Past Alcohol Use History / Comment(s): smokes 3-4 cigarettes daily for 10 yrs Past Drug Use History: None Reported - Past Family History Mother Family Medical History: No Reported History General Exam - General Exam Comments Initial Comments: Constitutional: Awake alert Appears comfortable Head: Normocephalic atraumatic Eyes: no conjunctival injection No scleral icterus EOMI, pupils are 2 mm and reactive sluggishly Neck: No JVD Supple Heart: Regular rate rhythm normal S1-S2 no murmurs Lungs: Clear to auscultation bilaterally No wheezing No rales Abdomen: Soft nondistended nontender Extremities: Non edematous DP pulses intact Radial pulses intact Neuro: A&Ox3 No focal neurologic deficits Psych: Appropriate mood and affect Course Vital Signs 10/10/16 10/10/16 10/10/16 03:03 03:11 03:20 Temperature 99.0 F Pulse Rate 86 102 H 104 H Respiratory 14 14 15 Rate Blood Pressure 127/85 127/85 127/85 O2 Sat by Pulse 100 96 96 Oximetry - Reevaluation(s) Reevaluation #1: 10/10/16 03:08 EKG is showing sinus rhythm with a rate of 99. No abnormal ST segment changes or T-wave inversions. QTC is 472. Other intervals are normal. Patient is in trigeminy Medical Decision Making - Medical Decision Making This is a 30-year-old male presents emergency department for heroin overdose. He was given 0.8 mg of Narcan and monitored for one hour. The patient did not have any respiratory depression. [facility] is here to take him home. Patient will be provided with a Narcan autoinjector. Told to check himself into rehab. Can return if he has any concerning symptoms. All questions were answered. - Lab Data Lab Results 10/10/16 Range/Units 03:26 POC Glucose (mg/dL) 149 H (75-99) mg/dL POC Glu [employer]er ID Sheila Alfred Disposition Clinical Impression: Heroin overdose Disposition: HOME SELF-CARE Condition: Stable Instructions: Narcotic Abuse (ED) Prescriptions: Naloxone HCl [Evzio] 2 mg IJ ONCE PRN #1 auto.injct PRN Reason: Overdose Referrals: None,Stated [REFERRING] - 1-2 days
[2016-10-10 03:09] VITALS: TEMP 99
[2016-10-10] MEDS: NALOXONE 0.4 MG/ML 1 ML VIAL IV STA ×2 (03:11→03:18)
[2016-10-10 03:29] LABS: Glucose,Whole Blood 149 mg/dL (75-99)
[2016-10-10 03:35] VITALS: RESP 15
[2016-10-10 04:24] VITALS: BP 122/59; PULSE 101
== END 2016-10-10 04:24 | disposition home or self-care (01) ==
LOC: EC 02:57
DX: T40.1X1A Poisoning by heroin, accidental (unintentional), initial encounter (principal); E07.9 Disorder of thyroid, unspecified; F41.9 Anxiety disorder, unspecified; F17.210 Nicotine dependence, cigarettes, uncomplicated; Z85.850 Personal history of malignant neoplasm of thyroid; Z79.899 Other long term (current) drug therapy; Z79.891 Long term (current) use of opiate analgesic
CPT/HCPCS: 36415; 93005; 99284; 96374; J2310

== ENCOUNTER → 2016-11-25 | Outpatient (CLI) | payer BC, OTHER | END | disposition home or self-care (01) | LOC: LABWHC1 15:49 | PROVIDERS: ATTEND Internal Medicine Endocrinology, Diabetes & Metabolism | DX: C73 Malignant neoplasm of thyroid gland (principal) | CPT/HCPCS: 36415; 84432; 84443; 86800 ==

== ENCOUNTER → 2016-12-22 | Outpatient (CLI) | payer BC, OTHER ==
--- NOTE | 2016-12-22 17:42 | US ---
EXAMINATION TYPE: US thyroid st tissue head/neck DATE OF EXAM: 12/22/2016 COMPARISON: US CLINICAL HISTORY: [id number] neoplasm of thyroid gland. History of thyroid CA, thyroidectomy July 2016 GLAND SIZE: Right Lobe: possible residual tissue 1.3 x 1.0 x 0.5 cm Overall Parenchyma: homogenous Left Lobe: possible residual tissue 1.5 x 1.2 x 0.5 cm Overall Parenchyma: homogeneous Isthmus Thickness: 0.3 cm NODULES RIGHT: # of nodules measured on right: 0 LEFT: # of nodules measured on left: 0 ISTHMUS: # of nodules measured in the isthmus: 0 Bilateral neck scanned, no evidence of lymphadenopathy. Possible bilateral residual tissue following thyroidectomy July 2016. There appears to be residual thyroid tissue bilaterally including the isthmus. This is greater on the left than the right. IMPRESSION: RESIDUAL THYROID TISSUE.
== END | disposition home or self-care (01) ==
LOC: RADUSWWP 17:06
PROVIDERS: ATTEND Internal Medicine Endocrinology, Diabetes & Metabolism
DX: C73 Malignant neoplasm of thyroid gland (principal)
CPT/HCPCS: 76536

== ENCOUNTER → 2016-12-22 | Outpatient (CLI) | payer BC, OTHER | END | disposition home or self-care (01) | LOC: LABWHC1 17:12 | PROVIDERS: ATTEND Obstetrics & Gynecology | DX: Z29.13 Encounter for prophylactic Rho(D) immune globulin (principal) | CPT/HCPCS: 86850; 86900; 86901 ==

== ENCOUNTER 2016-12-25 17:43 | Emergency (ER) | payer BC, OTHER ==
[2016-12-25 17:52] VITALS: BP 143/89; PULSE 79; RESP 20; TEMP 97.9
--- NOTE | 2016-12-25 18:18 | ED ---
General Adult HPI - General Chief complaint: Skin/Abscess/Foreign Body Stated complaint: abcess Time Seen by Provider: 12/25/16 18:00 Source: patient, RN notes reviewed Mode of arrival: ambulatory Limitations: no limitations - History of Present Illness Initial comments: 31-year-old male presents emergency department with a chief complaint of abscess to left arm. Patient states he is an IV drug user. Patient admits to history of MRSA. Patient states noticed starting yesterday. Patient denies any fever chills cough. Patient states that he is not having. Patient states his history of abscesses. Patient is in pain with range of motion of the arm. Patient denies any recent fever, chills, shortness of breath, chest pain, back pain, abdominal pain, nausea vomiting, numbness or tingling, dysuria or hematuria, constipation or diarrhea, headaches or visual changes, or any other current symptoms. - Related Data Home Medications Medication Instructions Recorded Confirmed Dicyclomine [Bentyl] 20 mg PO BID PRN 05/26/16 12/25/16 LORazepam [Ativan] 2 mg PO BID 06/06/16 12/25/16 Buprenorphine HCl/Naloxone HCl 4 mg SL DAILY 07/29/16 12/25/16 [Buprenorphin-Naloxon 8-2 mg Sl] Liothyronine Sodium [Cytomel] 25 mcg PO DAILY 09/11/16 12/25/16 Previous Rx's Medication Instructions Recorded Naloxone HCl [Evzio] 2 mg IJ ONCE PRN #1 auto.injct 10/10/16 Sulfamethox-Tmp 800-160Mg [Bactrim 2 each PO Q12HR #56 tab 12/25/16 DS 800-160 mg] Allergies Allergy/AdvReac Type Severity Reaction Status Date / Time No Known Allergies Allergy Verified 12/25/16 17:52 Review of Systems ROS Statement: Those systems with pertinent positive or pertinent negative responses have been documented in the HPI. ROS Other: All systems not noted in ROS Statement are negative. Past Medical History Past Medical History: GERD/Reflux, Thyroid Disorder Additional Past Medical History / Comment(s): migraines, told heart murmer, thyroid cancer, arthritis, History of Any Multi-Drug Resistant Organisms: MRSA Date of last positivie culture/infection: 08/2014 MDRO Source:: left arm Past Surgical History: Ear Surgery, Hernia Repair Additional Past Surgical History / Comment(s): surgery for abscess on left arm from spider bite Past Anesthesia/Blood Transfusion Reactions: Motion Sickness Past Psychological History: Anxiety Smoking Status: Current every day smoker Past Alcohol Use History: None Reported Past Drug Use History: None Reported - Past Family History Mother Family Medical History: No Reported History General Exam - General Exam Comments Initial Comments: General: The patient is awake and alert, in no distress, and does not appear acutely ill. Neck: The neck is supple, there is no tenderness. Cardiovascular: There is a regular rate and rhythm. No murmur, rub or gallop is appreciated. Respiratory: Lungs are clear to auscultation, respirations are non-labored, breath sounds are equal. No wheezes, stridor, rales, or rhonchi. Musculoskeletal: Sensation intact with 2+ pulses. Left upper chest pain. Friend [place] left shoulder left elbow and left wrist. Patient does appear to have an abscess above the left elbow. There is fluctuant area to the center. Full range motion of left elbow. Neurological: CN II-XII intact, There are no obvious motor or sensory deficits. Coordination appears grossly intact. Speech is normal. Skin: Skin is warm and dry and no rashes or lesions are noted. Psychiatric: Normal mood and affect. Limitations: no limitations Course Vital Signs 12/25/16 17:50 Temperature 97.9 F Pulse Rate 79 Respiratory 20 Rate Blood Pressure 143/89 O2 Sat by Pulse 97 Oximetry Procedures - Procedures Initial comment: Procedure: Incision and drainage The skin overlying the abscess was prepped with Betadine, and anesthetized with 1% lidocaine without epinephrine. A #11 scalpel was then used to incise the abscess. Some purulent material was then extracted from the lesion. Gauze dressing placed on top, The patient tolerated the procedure well. Medical Decision Making - Medical Decision Making 31-year-old male presents for abscess to left arm. This time patient. At this time we discussed care follow-up return parameters and all the patient's questions. He stated he understood and he is given the plan. This time we will discharge home. Disposition Clinical Impression: Abscess of left arm Disposition: HOME SELF-CARE Condition: Stable Instructions: Abscess (ED), Abscess Incision and Drainage (ED) Additional Instructions: Please use medication as discussed. Please follow up with family doctor if symptoms have not improved over the next two days. Please return to the emergency room if your symptoms increase or worsen or for any other concerns. Prescriptions: Sulfamethox-Tmp 800-160Mg [Bactrim DS 800-160 mg] 2 each PO Q12HR #56 tab Referrals: Cassidy Nolan MD [STAFF PHYSICIAN] - 1-2 days Time of Disposition: 18:18
== END 2016-12-25 18:24 | disposition home or self-care (01) ==
LOC: EC 17:43
DX: L02.414 Cutaneous abscess of left upper limb (principal); F41.9 Anxiety disorder, unspecified; E07.9 Disorder of thyroid, unspecified; F17.200 Nicotine dependence, unspecified, uncomplicated; Z86.14 Personal history of Methicillin resistant Staphylococcus aureus infection; Z85.850 Personal history of malignant neoplasm of thyroid; Z79.891 Long term (current) use of opiate analgesic; Z79.899 Other long term (current) drug therapy
CPT/HCPCS: 10060; 99282

== ENCOUNTER → 2017-02-04 | Outpatient (CLI) | payer BC, OTHER | END | disposition home or self-care (01) | LOC: LABWHC1 12:20 | PROVIDERS: ATTEND Internal Medicine Endocrinology, Diabetes & Metabolism | DX: C73 Malignant neoplasm of thyroid gland (principal) | CPT/HCPCS: 36415; 84432; 84443; 86800 ==

== ENCOUNTER → 2017-07-28 | Outpatient (CLI) | payer OTHER ==
[2017-07-28 20:49] LABS: Thyroglobulin <0.20 ng/mL (1.60-59.90)
== END | disposition home or self-care (01) ==
LOC: LABWHC1 14:21
PROVIDERS: ATTEND Internal Medicine Endocrinology, Diabetes & Metabolism
DX: C73 Malignant neoplasm of thyroid gland (principal)
CPT/HCPCS: 36415; 84432; 84443; 86800

== ENCOUNTER → 2017-08-03 | Outpatient (CLI) | payer OTHER ==
--- NOTE | 2017-08-03 15:07 | US ---
EXAMINATION TYPE: US thyroid st tissue head/neck DATE OF EXAM: 08/03/2017 COMPARISON: November 2016 CLINICAL HISTORY: C73 MALIGNANT NEOPLASM OF THYROID GLAND. Thyroid CA and thyroidectomy, known residu al tissue GLAND SIZE: Right Lobe: 1.8 x 0.5 x 1.2 cm Overall Parenchyma: heterogenous Left Lobe: 1.9 x 1.3 x 0.4 cm Overall Parenchyma: heterogeneous Isthmus Thickness: 0.3 cm NODULES RIGHT: # of nodules measured on right: 0 LEFT: # of nodules measured on left: 0 ISTHMUS: # of nodules measured in the isthmus: 0 Bilateral neck scanned, no evidence of lymphadenopathy. IMPRESSION: There is residual thyroid tissue noted without distinct mass.
== END | disposition home or self-care (01) ==
LOC: RADUSWWP 14:40
PROVIDERS: ATTEND Internal Medicine Endocrinology, Diabetes & Metabolism
DX: C73 Malignant neoplasm of thyroid gland (principal)
CPT/HCPCS: 76536

== ENCOUNTER 2017-08-20 17:32 | Emergency (ER) | payer OTHER ==
[2017-08-20] MEDS ORDERED: NALOXONE 0.4 MG/ML 1 ML VIAL IV STA (17:34)
[2017-08-20] MEDS ORDERED: SODIUM CHLORIDE 0.9% 1,000 ML IV STA (17:34)
[2017-08-20 17:55] LABS: INR 1.2 (<1.2); Prothrombin Time 11.2 sec (9.0-12.0)
[2017-08-20 18:02] LABS: ALT 66 U/L (21-72); AST 81 U/L (17-59); Acetaminophen <10.0 ug/mL; Albumin 4.3 g/dL (3.5-5.0); Alcohol <10 mg/dL; Alkaline Phosphatase 75 U/L (38-126); Anion Gap 23 mmol/L; Blood Urea Nitrogen 13 mg/dL (9-20); Calcium 9.1 mg/dL (8.4-10.2); Carbon Dioxide 15 mmol/L (22-30); Chloride 107 mmol/L (98-107); Glucose 150 mg/dL (74-99); Potassium 3.9 mmol/L (3.5-5.1); Salicylate <1.0 mg/dL; Sodium 145 mmol/L (137-145); Total Bilirubin 0.3 mg/dL (0.2-1.3); Total Protein 6.4 g/dL (6.3-8.2)
[2017-08-20 18:04] LABS: Basophils % (A) 0 %; Eosinophils # (A) 0.1 k/uL (0-0.7); Eosinophils % (A) 1 %; HCT 44.5 % (39.0-53.0); HGB 14.6 gm/dL (13.0-17.5); Lymphocytes # (A) 0.8 k/uL (1.0-4.8); Lymphocytes % (A) 5 %; MCH 29.9 pg (25.0-35.0); MCHC 32.8 g/dL (31.0-37.0); MCV 91.1 fL (80.0-100.0); Mean Platelet Volume 6.3; Monocytes % (A) 7 %; Neutrophils # (A) 12.8 k/uL (1.3-7.7); Neutrophils % (A) 86 %; Platelet Count 336 k/uL (150-450); RBC 4.89 m/uL (4.30-5.90); WBC 14.9 k/uL (3.8-10.6)
[2017-08-20 18:07] LABS: Appearance,Urine Cloudy (Clear); Bacteria,Urine Rare /hpf; Bilirubin,Urine Negative (Negative); Blood,Urine Trace (Negative); Color,Urine Yellow; Glucose,Urine (UA) Negative (Negative); Ketones,Urine Trace (Negative); Leukocyte Esterase,Urine Negative (Negative); Mucus,Urine Occasional /hpf; Nitrite,Urine Negative (Negative); Protein,Urine 1+ (Negative); RBC,Urine 2 /hpf (0-5); Specific Gravity,Urine 1.012 (1.001-1.035); Squamous Epithelial Cell,Urine <1 /hpf (0-4); Urobilinogen,Urine <2.0 mg/dL (<2.0); WBC,Urine 14 /hpf (0-5)
[2017-08-20 18:25] LABS: Troponin I 0.018 ng/mL (0.000-0.034)
[2017-08-20 18:26] LABS: Amphetamine Screen,Urine Detected (NotDetected); Barbiturate Screen,Urine Not Detected (NotDetected); Benzodiazepines Screen,Urine Detected (NotDetected); Cocaine Screen,Urine Not Detected (NotDetected); Methadone Screen, Urine Not Detected (NotDetected); Opiate Screen,Urine Not Detected (NotDetected); Oxycodone Screen, Urine Not Detected (NotDetected); Phencyclidine Screen,Urine Not Detected (NotDetected); Tricyclic Antidepressant,Urine Not Detected (NotDetected); Urn Cannabinoid Scrn Detected (NotDetected)
[2017-08-20 18:29] LABS: Creatine Kinase MB 2.8 ng/mL (0.0-2.4)
--- NOTE | 2017-08-20 18:42 | CT ---
EXAMINATION TYPE: CT facial bones wo con DATE OF EXAM: 08/20/2017 COMPARISON: NONE HISTORY: Overdose. Left orbital injury. CT DLP: 405.85 mGycm Automated exposure control for dose reduction was used. TECHNIQUE: CT scan of the sinuses is performed without contrast, axial images are obtained, coronal r eformatted images are also reviewed. FINDINGS: The orbital margins are intact. There is no evidence of a blowout fracture. There is fairly normal aeration of the paranasal sinuses. Mastoid sinuses appear normal. The maxilla is intact. Ther e is bilateral patency of the ostiomeatal complex. Nasal bone is intact. I see no bony destructive pr ocess. There is a 7 mm focal area of mucosal thickening in the right side of sphenoid sinus. IMPRESSION: Essentially negative CT scan of the paranasal sinuses. No fracture. No evidence of facial bone fracture.
--- NOTE | 2017-08-20 18:43 | CT ---
EXAMINATION TYPE: CT brain wo con DATE OF EXAM: 08/20/2017 COMPARISON: NONE HISTORY: Overdose. Left orbital injury. CT DLP: 1173.73 mGycm. Automated Exposure Control for Dose Reduction was Utilized. TECHNIQUE: CT scan of the head is performed without contrast. FINDINGS: Ventricles and sulci appear normal. There is no mass effect nor midline shift. There is n o sign of intracranial hemorrhage. The calvarium is intact. CONCLUSION: Normal CT scan of the brain.
--- NOTE | 2017-08-20 18:46 | ED ---
General Adult HPI - General Chief complaint: Overdose Stated complaint: Overdose Time Seen by Provider: 08/20/17 17:34 Source: EMS, RN notes reviewed, old records reviewed Mode of arrival: EMS Limitations: no limitations - History of Present Illness Initial comments: This is a 31-year-old male the ER status post overdose. Patient's poor strain secondary to clinical status. Patient apparently was found down and breaking bathroom with needle and arm, admitted to heroin. Did respond to Narcan. Patient was down for quite some time, he did have significant bruising to face left-sided face complaining of some headache or pain. Also pain in his arm from laying on it, patient denies any other drugs or alcohol - Related Data Home Medications Medication Instructions Recorded Confirmed LORazepam [Ativan] 2 mg PO BID PRN 06/06/16 08/20/17 Albuterol Inhaler [Ventolin Hfa 2 puff INHALATION RT-QID PRN 08/20/17 08/20/17 Inhaler] Buprenorphine HCl/Naloxone HCl 1 film SL BID 08/20/17 08/20/17 [Suboxone 4 mg-1 mg Sl Film] Levothyroxine Sodium [Synthroid] 175 mcg PO DAILY 08/20/17 08/20/17 Omeprazole 20 mg PO BID 08/20/17 08/20/17 Pregabalin [Lyrica] 100 mg PO TID 08/20/17 08/20/17 QUEtiapine [SEROquel] 100 mg PO HS 08/20/17 08/20/17 lamoTRIgine [LaMICtal] 100 mg PO BID 08/20/17 08/20/17 traMADol HCL [Ultram] 50 mg PO Q6HR PRN 08/20/17 08/20/17 Allergies Allergy/AdvReac Type Severity Reaction Status Date / Time No Known Allergies Allergy Verified 12/25/16 17:52 Review of Systems ROS Statement: Those systems with pertinent positive or pertinent negative responses have been documented in the HPI. ROS Other: All systems not noted in ROS Statement are negative. Past Medical History Past Medical History: GERD/Reflux, Thyroid Disorder Additional Past Medical History / Comment(s): migraines, told heart murmer, thyroid cancer, arthritis, History of Any Multi-Drug Resistant Organisms: MRSA Date of last positivie culture/infection: 08/2014 MDRO Source:: left arm Past Surgical History: Ear Surgery, Hernia Repair Additional Past Surgical History / Comment(s): surgery for abscess on left arm from spider bite Past Anesthesia/Blood Transfusion Reactions: Motion Sickness Past Psychological History: Anxiety Smoking Status: Current every day smoker Past Alcohol Use History: None Reported Past Drug Use History: None Reported - Past Family History Mother Family Medical History: No Reported History General Exam Limitations: altered mental status General appearance: alert, in no apparent distress Head exam: Present: normocephalic, normal inspection. Absent: atraumatic ( Bruising left side of face) Eye exam: Present: normal appearance, PERRL, EOMI. Absent: scleral icterus, conjunctival injection, periorbital swelling ENT exam: Present: normal exam, mucous membranes moist Neck exam: Present: normal inspection. Absent: tenderness, meningismus, lymphadenopathy Respiratory exam: Present: normal lung sounds bilaterally. Absent: respiratory distress, wheezes, rales, rhonchi, stridor Cardiovascular Exam: Present: regular rate, normal rhythm, normal heart sounds. Absent: systolic murmur, diastolic murmur, rubs, gallop, clicks GI/Abdominal exam: Present: soft, normal bowel sounds. Absent: distended, tenderness, guarding, rebound, rigid Extremities exam: Present: normal inspection, full ROM, normal capillary refill. Absent: tenderness, pedal edema, joint swelling, calf tenderness Back exam: Present: normal inspection Neurological exam: Present: alert, oriented X3, CN II-XII intact Psychiatric exam: Present: normal affect, normal mood Skin exam: Present: warm, dry, intact, normal color. Absent: rash Course Vital Signs 08/20/17 08/20/17 08/20/17 17:35 18:38 19:11 Temperature 97.3 F L Pulse Rate 102 H 93 91 Respiratory 22 16 18 Rate Blood Pressure 104/63 98/56 102/60 O2 Sat by Pulse 99 100 100 Oximetry 08/20/17 08/20/17 20:07 20:59 Temperature 96.9 F L Pulse Rate 85 54 L Respiratory 18 18 Rate Blood Pressure 101/58 98/67 O2 Sat by Pulse 99 98 Oximetry - Reevaluation(s) Reevaluation #1: Patient given repeated doses of Narcan to for arousability, currently awake and alert girlfriend at bedside EKG Findings - EKG Comments: EKG Findings:: EKG shows normal sinus rhythm rate of 99, MN 164, QRS 124, QTC 500 Medical Decision Making - Medical Decision Making 31 male the ER for evaluation regarding [id number] overdose, patient is educated of the dangers of heroin use and narcotic abuse. Patient understands - Lab Data Result diagrams: 08/20/17 17:40 08/20/17 17:40 Lab Results 08/20/17 08/20/17 08/20/17 Range/Units 17:40 17:40 17:40 WBC 14.9 H (3.8-10.6) k/uL RBC 4.89 (4.30-5.90) m/uL Hgb 14.6 (13.0-17.5) gm/dL Hct 44.5 (39.0-53.0) % MCV 91.1 (80.0-100.0) fL MCH 29.9 (25.0-35.0) pg MCHC 32.8 (31.0-37.0) g/dL RDW 13.0 (11.5-15.5) % Plt Count 336 (150-450) k/uL Neutrophils % 86 % Lymphocytes % 5 % Monocytes % 7 % Eosinophils % 1 % Basophils % 0 % Neutrophils # 12.8 H (1.3-7.7) k/uL Lymphocytes # 0.8 L (1.0-4.8) k/uL Monocytes # 1.0 (0-1.0) k/uL Eosinophils # 0.1 (0-0.7) k/uL Basophils # 0.0 (0-0.2) k/uL PT (9.0-12.0) sec INR (<1.2) Sodium 145 (137-145) mmol/L Potassium 3.9 (3.5-5.1) mmol/L Chloride 107 (98-107) mmol/L Carbon Dioxide 15 L (22-30) mmol/L Anion Gap 23 mmol/L BUN 13 (9-20) mg/dL Creatinine 1.80 H (0.66-1.25) mg/dL Est GFR (CKD-EPI)AfAm 57 (>60 ml/min/1.73 sqM) Est GFR (CKD-EPI)NonAf 49 (>60 ml/min/1.73 sqM) Glucose 150 H (74-99) mg/dL Lactic Ac Sepsis Rflx Plasma Lactic Acid Fausto (0.7-2.0) mmol/L Calcium 9.1 (8.4-10.2) mg/dL Total Bilirubin 0.3 (0.2-1.3) mg/dL AST 81 H (17-59) U/L ALT 66 (21-72) U/L Alkaline Phosphatase 75 (38-126) U/L Total Creatine Kinase 282 H (55-170) U/L CK-MB (CK-2) 2.8 H* (0.0-2.4) ng/mL CK-MB (CK-2) Rel Index 1.0 Troponin I 0.018 (0.000-0.034) ng/mL Total Protein 6.4 (6.3-8.2) g/dL Albumin 4.3 (3.5-5.0) g/dL Urine Color Urine Appearance (Clear) Urine pH (5.0-8.0) Ur Specific [place] (1.001-1.035) Urine Protein (Negative) Urine Glucose (UA) (Negative) Urine Ketones (Negative) Urine Blood (Negative) Urine Nitrite (Negative) Urine Bilirubin (Negative) Urine Urobilinogen (<2.0) mg/dL Ur Leukocyte Esterase (Negative) Urine RBC (0-5) /hpf Urine WBC (0-5) /hpf Urine WBC Clumps (None) /hpf Ur Squamous Epith Cells (0-4) /hpf Urine Bacteria (None) /hpf Urine Mucus (None) /hpf Salicylates <1.0 mg/dL Urine Opiates Screen (NotDetected) Ur Oxycodone Screen (NotDetected) Urine Methadone Screen (NotDetected) Ur Propoxyphene Screen (NotDetected) Acetaminophen <10.0 ug/mL Ur Barbiturates Screen (NotDetected) U Tricyclic Antidepress (NotDetected) Ur Phencyclidine Scrn (NotDetected) Ur Amphetamines Screen (NotDetected) U Methamphetamines Scrn (NotDetected) U Benzodiazepines Scrn (NotDetected) Urine Cocaine Screen (NotDetected) U Marijuana (THC) Screen (NotDetected) Serum Alcohol <10 mg/dL 08/20/17 08/20/17 08/20/17 Range/Units 17:40 17:40 17:53 WBC (3.8-10.6) k/uL RBC (4.30-5.90) m/uL Hgb (13.0-17.5) gm/dL Hct (39.0-53.0) % MCV (80.0-100.0) fL MCH (25.0-35.0) pg MCHC (31.0-37.0) g/dL RDW (11.5-15.5) % Plt Count (150-450) k/uL Neutrophils % % Lymphocytes % % Monocytes % % Eosinophils % % Basophils % % Neutrophils # (1.3-7.7) k/uL Lymphocytes # (1.0-4.8) k/uL Monocytes # (0-1.0) k/uL Eosinophils # (0-0.7) k/uL Basophils # (0-0.2) k/uL PT 11.2 (9.0-12.0) sec INR 1.2 H (<1.2) Sodium (137-145) mmol/L Potassium (3.5-5.1) mmol/L Chloride (98-107) mmol/L Carbon Dioxide (22-30) mmol/L Anion Gap mmol/L BUN (9-20) mg/dL Creatinine (0.66-1.25) mg/dL Est GFR (CKD-EPI)AfAm (>60 ml/min/1.73 sqM) Est GFR (CKD-EPI)NonAf (>60 ml/min/1.73 sqM) Glucose (74-99) mg/dL Lactic Ac Sepsis Rflx Plasma Lactic Acid Fausto 7.3 H* (0.7-2.0) mmol/L Calcium (8.4-10.2) mg/dL Total Bilirubin (0.2-1.3) mg/dL AST (17-59) U/L ALT (21-72) U/L Alkaline Phosphatase (38-126) U/L Total Creatine Kinase (55-170) U/L CK-MB (CK-2) (0.0-2.4) ng/mL CK-MB (CK-2) Rel Index Troponin I (0.000-0.034) ng/mL Total Protein (6.3-8.2) g/dL Albumin (3.5-5.0) g/dL Urine Color Urine Appearance (Clear) Urine pH (5.0-8.0) Ur Specific [place] (1.001-1.035) Urine Protein (Negative) Urine Glucose (UA) (Negative) Urine Ketones (Negative) Urine Blood (Negative) Urine Nitrite (Negative) Urine Bilirubin (Negative) Urine Urobilinogen (<2.0) mg/dL Ur Leukocyte Esterase (Negative) Urine RBC (0-5) /hpf Urine WBC (0-5) /hpf Urine WBC Clumps (None) /hpf Ur Squamous Epith Cells (0-4) /hpf Urine Bacteria (None) /hpf Urine Mucus (None) /hpf Salicylates mg/dL Urine Opiates Screen Not Detected (NotDetected) Ur Oxycodone Screen Not Detected (NotDetected) Urine Methadone Screen Not Detected (NotDetected) Ur Propoxyphene Screen Not Detected (NotDetected) Acetaminophen ug/mL Ur Barbiturates Screen Not Detected (NotDetected) U Tricyclic Antidepress Not Detected (NotDetected) Ur Phencyclidine Scrn Not Detected (NotDetected) Ur Amphetamines Screen Detected H (NotDetected) U Methamphetamines Scrn Detected H (NotDetected) U Benzodiazepines Scrn Detected H (NotDetected) Urine Cocaine Screen Not Detected (NotDetected) U Marijuana (THC) Screen Detected H (NotDetected) Serum Alcohol mg/dL 08/20/17 08/20/17 Range/Units 17:53 18:02 WBC (3.8-10.6) k/uL RBC (4.30-5.90) m/uL Hgb (13.0-17.5) gm/dL Hct (39.0-53.0) % MCV (80.0-100.0) fL MCH (25.0-35.0) pg MCHC (31.0-37.0) g/dL RDW (11.5-15.5) % Plt Count (150-450) k/uL Neutrophils % % Lymphocytes % % Monocytes % % Eosinophils % % Basophils % % Neutrophils # (1.3-7.7) k/uL Lymphocytes # (1.0-4.8) k/uL Monocytes # (0-1.0) k/uL Eosinophils # (0-0.7) k/uL Basophils # (0-0.2) k/uL PT (9.0-12.0) sec INR (<1.2) Sodium (137-145) mmol/L Potassium (3.5-5.1) mmol/L Chloride (98-107) mmol/L Carbon Dioxide (22-30) mmol/L Anion Gap mmol/L BUN (9-20) mg/dL Creatinine (0.66-1.25) mg/dL Est GFR (CKD-EPI)AfAm (>60 ml/min/1.73 sqM) Est GFR (CKD-EPI)NonAf (>60 ml/min/1.73 sqM) Glucose (74-99) mg/dL Lactic Ac Sepsis Rflx Y Plasma Lactic Acid Fausto (0.7-2.0) mmol/L Calcium (8.4-10.2) mg/dL Total Bilirubin (0.2-1.3) mg/dL AST (17-59) U/L ALT (21-72) U/L Alkaline Phosphatase (38-126) U/L Total Creatine Kinase (55-170) U/L CK-MB (CK-2) (0.0-2.4) ng/mL CK-MB (CK-2) Rel Index Troponin I (0.000-0.034) ng/mL Total Protein (6.3-8.2) g/dL Albumin (3.5-5.0) g/dL Urine Color Yellow Urine Appearance Cloudy (Clear) Urine pH 7.0 (5.0-8.0) Ur Specific Hamlet 1.012 (1.001-1.035) Urine Protein 1+ H (Negative) Urine Glucose (UA) Negative (Negative) Urine Ketones Trace H (Negative) Urine Blood Trace H (Negative) Urine Nitrite Negative (Negative) Urine Bilirubin Negative (Negative) Urine Urobilinogen <2.0 (<2.0) mg/dL Ur Leukocyte Esterase Negative (Negative) Urine RBC 2 (0-5) /hpf Urine WBC 14 H (0-5) /hpf Urine WBC Clumps Few H (None) /hpf Ur Squamous Epith Cells <1 (0-4) /hpf Urine Bacteria Rare H (None) /hpf Urine Mucus Occasional H (None) /hpf Salicylates mg/dL Urine Opiates Screen (NotDetected) Ur Oxycodone Screen (NotDetected) Urine Methadone Screen (NotDetected) Ur Propoxyphene Screen (NotDetected) Acetaminophen ug/mL Ur Barbiturates Screen (NotDetected) U Tricyclic Antidepress (NotDetected) Ur Phencyclidine Scrn (NotDetected) Ur Amphetamines Screen (NotDetected) U Methamphetamines Scrn (NotDetected) U Benzodiazepines Scrn (NotDetected) Urine Cocaine Screen (NotDetected) U Marijuana (THC) Screen (NotDetected) Serum Alcohol mg/dL - Radiology Data Radiology results: report reviewed (CT brain C-spine negative for acute disease chest x-rays negative), image reviewed Disposition Clinical Impression: Heroin overdose Disposition: HOME SELF-CARE Condition: Fair Instructions: Narcotic Abuse (ED) Is patient prescribed a controlled substance at d/c from ED?: No Referrals: None,Stated [Primary Care Provider] - 1-2 days
[2017-08-20 19:13] VITALS: RESP 18
--- NOTE | 2017-08-20 19:24 | XR ---
EXAMINATION TYPE: XR chest 1V portable DATE OF EXAM: 08/20/2017 COMPARISON: NONE HISTORY: Overdose TECHNIQUE: Single frontal view of the chest is obtained. FINDINGS: Heart and mediastinum are normal. Lungs are clear. Diaphragm is normal. Bony thorax is int act. There are chest leads. IMPRESSION: Normal chest
[2017-08-20 21:00] VITALS: BP 98/67; PULSE 54; TEMP 96.9
== END 2017-08-20 21:08 | disposition home or self-care (01) ==
LOC: EC 17:32
DX: T40.1X1A Poisoning by heroin, accidental (unintentional), initial encounter (principal); K21.9 Gastro-esophageal reflux disease without esophagitis; E07.9 Disorder of thyroid, unspecified; F41.9 Anxiety disorder, unspecified; M19.90 Unspecified osteoarthritis, unspecified site; F17.200 Nicotine dependence, unspecified, uncomplicated; Z79.891 Long term (current) use of opiate analgesic; Z85.850 Personal history of malignant neoplasm of thyroid; Z86.14 Personal history of Methicillin resistant Staphylococcus aureus infection
CPT/HCPCS: 99285; 96374; 36415; 93005; 80053; 82550; 82553; 83605; 84484; 85025; 85610; 81001; 80306; 83520 ×2; 80320; 71045; 70486; 70450; J2310

== ENCOUNTER 2017-11-08 18:49 | Emergency (ER) | payer OTHER ==
[2017-11-08 19:11] VITALS: RESP 18
[2017-11-08] MEDS ORDERED: PROPARACAINE 0.5% OPHTH DROPS 15 ML BTL LEFT EYE STA (19:32)
--- NOTE | 2017-11-08 20:13 | ED ---
Eye Problem HPI - General Chief complaint: Eye Problems Stated complaint: Lt eye injury Time Seen by Provider: 11/08/17 19:29 Source: patient, RN notes reviewed Mode of arrival: ambulatory Limitations: no limitations - History of Present Illness Initial comments: This is a 32-year-old male with PMH of thyroid cancer and migraines who presents today for chief complaint of left eye pain. Patient states that at around 5:30 PM he was playing with his 8-month-old daughter. Who reached and poked him in his eye with one of her fingers, continue with her fingernail. Patient immediately began experiencing left eye pain and lacrimation. Patient tried to rinse the eye and apply cold compresses. When this did not help patient decided to present to the emergency department. Patient amidst of photophobia, lacrimation, left eye pain, and conjunctival injection. Patient denies vision loss or changes, flashes of light or floaters. Upon presentation visual acuity 20/40 bilaterally- patient denies history of wearing glasses or contact lenses. Patient denies any recent fever, chills, shortness of breath, chest pain, back pain, abdominal pain, nausea or vomiting, numbness or tingling, dysuria or hematuria, constipation or diarrhea, headaches or visual changes, or any other complaints. - Related Data Home Medications Medication Instructions Recorded Confirmed LORazepam [Ativan] 2 mg PO BID PRN 06/06/16 08/20/17 Albuterol Inhaler [Ventolin Hfa 2 puff INHALATION RT-QID PRN 08/20/17 08/20/17 Inhaler] Buprenorphine HCl/Naloxone HCl 1 film SL BID 08/20/17 08/20/17 [Suboxone 4 mg-1 mg Sl Film] Levothyroxine Sodium [Synthroid] 175 mcg PO DAILY 08/20/17 08/20/17 Omeprazole 20 mg PO BID 08/20/17 08/20/17 Pregabalin [Lyrica] 100 mg PO TID 08/20/17 08/20/17 QUEtiapine [SEROquel] 100 mg PO HS 08/20/17 08/20/17 lamoTRIgine [LaMICtal] 100 mg PO BID 08/20/17 08/20/17 traMADol HCL [Ultram] 50 mg PO Q6HR PRN 08/20/17 08/20/17 Previous Rx's Medication Instructions Recorded Ibuprofen [Motrin] 800 mg PO Q6H PRN 4 Days #16 tab 11/08/17 Allergies Allergy/AdvReac Type Severity Reaction Status Date / Time No Known Allergies Allergy Verified 12/25/16 17:52 Review of Systems ROS Statement: Those systems with pertinent positive or pertinent negative responses have been documented in the HPI. ROS Other: All systems not noted in ROS Statement are negative. Constitutional: Denies: fever, chills Eyes: Reports: as per HPI, eye pain. Denies: eye discharge, vision change ENT: Denies: ear pain Respiratory: Denies: cough, dyspnea Cardiovascular: Denies: chest pain, palpitations Endocrine: Denies: fatigue Gastrointestinal: Denies: abdominal pain, nausea, vomiting, diarrhea, constipation Genitourinary: Denies: dysuria, frequency Skin: Denies: rash, lesions Neurological: Denies: headache, weakness Past Medical History Past Medical History: GERD/Reflux, Thyroid Disorder Additional Past Medical History / Comment(s): migraines, told heart murmer, thyroid cancer, arthritis, History of Any Multi-Drug Resistant Organisms: MRSA Date of last positivie culture/infection: 08/2014 MDRO Source:: left arm Past Surgical History: Ear Surgery, Hernia Repair Additional Past Surgical History / Comment(s): surgery for abscess on left arm from spider bite Past Anesthesia/Blood Transfusion Reactions: Motion Sickness Past Psychological History: Anxiety Smoking Status: Current every day smoker Past Alcohol Use History: None Reported Past Drug Use History: None Reported - Past Family History Mother Family Medical History: No Reported History General Exam - General Exam Comments Initial Comments: General: The patient is awake and alert, in no distress, and does not appear acutely ill. Eye: Pupils are equal, round and reactive to light, extra-ocular movements are intact. No nystagmus. There is conjunctival injection of the left eye, normal right. No signs of icterus. Upon slit lamp examination no obvious cornea defects or FB present. Florescein examination revealed large corneal abrasion at 4'oclock position, it is irregularly shaped and stretched toward the pupil. IOP 16 b/l. Ears, nose, mouth and throat: There are moist mucous membranes and no oral lesions. Neck: The neck is supple, there is no tenderness or JVD. Cardiovascular: There is a regular rate and rhythm. No murmur, rub or gallop is appreciated. Respiratory: Lungs are clear to auscultation, respirations are non-labored, breath sounds are equal. No wheezes, stridor, rales, or rhonchi. Gastrointestinal: [Soft, non-distended, non-tender abdomen without masses or organomegaly noted. There is no rebound or guarding present. No CVA tenderness. Bowel sounds are unremarkable.] Musculoskeletal: Normal ROM, no tenderness. Strength 5/5. Sensation intact. Pulses equal bilaterally 2+. Neurological: A&O x 3. CN II-XII intact, There are no obvious motor or sensory deficits. Coordination appears grossly intact. Speech is normal. Skin: Skin is warm and dry and no rashes or lesions are noted. Psychiatric: Cooperative, appropriate mood & affect, normal judgment. Limitations: no limitations Course Vital Signs 11/08/17 11/08/17 19:04 20:16 Temperature 97.0 F L 98 F Pulse Rate 68 92 Respiratory 18 18 Rate Blood Pressure 136/82 133/92 O2 Sat by Pulse 100 98 Oximetry Medical Decision Making - Medical Decision Making This is a 32-year-old male with no past medical history who presents today for chief complaint of left eye pain after being poked in the eye by his 8-month- old daughter earlier this evening. Proparacaine was administered to the left eye 2 drops, patient experienced immediate relief from left eye pain. Left conjunctival injection. Fluorescein examination revealed corneal defect at the 4 o'clock position extending toward the pupil, is irregularly shaped-no evidence of foreign body. Patient's IOP 16 b/l. Remainder of examination unremarkable. Visual acuity 20/40 bilaterally. Case was discussed in detail with Dr. Dooley. At this time we do feel patient is stable for discharge with ophthalmology follow-up with diagnosis of corenal abrasion. Patient was educated the importance of eye lubrication instructed to use [id number] eye lubricant for relief until further evaluation and treatment by . Patient was discharged with a prescription for ibuprofen 800 every 6 hours as needed for pain management. Patient was instructed to return to the emergency department if symptoms change or worsen. Patient discharged in stable condition. Disposition Clinical Impression: Corneal abrasion, left Disposition: HOME SELF-CARE Condition: Good Instructions: Eye Lubricant (Into the eye), Corneal Abrasion (ED) Additional Instructions: Please use medication as discussed. Please follow-up with ophthalmology with- in 24-48 hours. Please return to emergency room if the symptoms increase or worsen or for any other concerns Prescriptions: Ibuprofen [Motrin] 800 mg PO Q6H PRN 4 Days #16 tab PRN Reason: Pain Is patient prescribed a controlled substance at d/c from ED?: No Referrals: Naren Castro MD [Primary Care Provider] - 1-2 days Mildred Malcolm MD [STAFF PHYSICIAN] - 1-2 days Time of Disposition: 20:13
[2017-11-08 20:17] VITALS: BP 133/92; PULSE 92; TEMP 98
== END 2017-11-08 20:25 | disposition home or self-care (01) ==
LOC: EC 18:49
DX: S05.02XA Injury of conjunctiva and corneal abrasion without foreign body, left eye, initial encounter (principal); K21.9 Gastro-esophageal reflux disease without esophagitis; F41.9 Anxiety disorder, unspecified; F17.200 Nicotine dependence, unspecified, uncomplicated; Z79.899 Other long term (current) drug therapy; Z86.14 Personal history of Methicillin resistant Staphylococcus aureus infection; Z85.850 Personal history of malignant neoplasm of thyroid; W50.0XXA Accidental hit or strike by another person, initial encounter; Y93.89 Activity, other specified
CPT/HCPCS: 99283

== ENCOUNTER → 2018-01-26 | Outpatient (CLI) | payer OTHER ==
--- NOTE | 2018-01-27 01:40 | US ---
EXAMINATION TYPE: US thyroid st tissue head/neck DATE OF EXAM: 01/26/2018 COMPARISON: 08/03/2017 CLINICAL HISTORY: 32-year-old male [id number] Malignant neoplasm of thyroid gland. 2017 thyroidectomy cancer TECHNIQUE: Multiple sonographic images of the thyroid gland are obtained. FINDINGS: GLAND SIZE: Right Lobe: 1.8x0.7x0.5, Overall Parenchyma: heterogenous Prior: 1.8 x 0.5 x 1.2 cm Left Lobe: 1.9 x x0.4 x 1.3 cm Overall Parenchyma: heterogeneous Prior: 1.9 x 1.3 x 0.4 cm Isthmus Thickness: 0. cm NODULES RIGHT: # of nodules measured on right: 0 LEFT: # of nodules measured on left: 0 ISTHMUS: # of nodules measured in the isthmus: 0 Bilateral neck scanned, no evidence of lymphadenopathy. IMPRESSION: Similar residual thyroid tissue. No discrete nodules or masses.
== END | disposition home or self-care (01) ==
LOC: RADUSWWP 16:02
PROVIDERS: ATTEND Internal Medicine Endocrinology, Diabetes & Metabolism
DX: C73 Malignant neoplasm of thyroid gland (principal)
CPT/HCPCS: 36415; 76536; 84443

== ENCOUNTER → 2018-02-12 | Outpatient (CLI) | payer OTHER ==
[2018-02-12 20:57] LABS: Blood Urea Nitrogen 16 mg/dL (9-20)
--- NOTE | 2018-02-16 08:39 | MR ---
EXAMINATION TYPE: MR lumbar spine wo/w con DATE OF EXAM: 02/12/2018 COMPARISON: Plain film dated 05/26/2016 HISTORY: Pain in left knee / R/O Meniscus tear TECHNIQUE: Multiplanar, multisequence images of the lumbar spine were acquired utilizing 10 mL intravenous Gadav ist gadolinium contrast. L1-L2: Normal disc appearance without desiccation. No herniation, protrusion or disc bulging. No ca nal stenosis is present. Foramina are patent bilaterally. L2-L3: Normal disc appearance without desiccation. No herniation, protrusion or disc bulging. No ca nal stenosis is present. Foramina are patent bilaterally. L3-L4: There is a central posterior disc protrusion causing anterior mass effect on the thecal sac bu t no significant central stenosis. Increased signal at the posterior aspect of the disc is compatible with possible annular tear. Circumferential extension of disc bulge encroaches only minimally on the foramina. L4-L5: Posterior broad-based disc bulge is present causing anterior mass effect on the thecal sac, in creased signal posterior aspect of the disc may represent annular tear. Circumferential extension end plate disc complex encroaches minimally on the foramina. No significant central stenosis. L5-S1: Normal disc appearance without desiccation. No herniation, protrusion or disc bulging. No ca nal stenosis is present. Foramina are patent bilaterally. Lumbar segments are intact. L5 vertebral body is partially sacralized on the left. No paraspinal mas ses are identified. Multilevel spondylosis with minimal endplate discogenic marrow signal change pre sent, there is loss of disc height signal at L5-S1, loss of signal at L4-5 and L3-4. Conus medullaris has a normal appearance. T12 and L1 vertebral bodies show hyperintense foci and T1 and T2-weighted s equences compatible with hemangiomas. No abnormal enhancement following contrast administration. Ther e is a mild spinal curvature. IMPRESSION: There is degenerative disc disease as described as bulges L5-S1, posterior central disc protrusion L3 -4. Additional findings above.
== END | disposition home or self-care (01) ==
LOC: RADMRIMAIN 20:26
PROVIDERS: ATTEND Physician Assistant
DX: M51.27 Other intervertebral disc displacement, lumbosacral region (principal); M51.37 Other intervertebral disc degeneration, lumbosacral region; M54.5 Low back pain
CPT/HCPCS: 82565; 84520; 72158; 36415; A9585

== ENCOUNTER 2018-04-13 04:58 | Emergency (ER) | payer OTHER ==
[2018-04-13] MEDS ORDERED: ONDANSETRON 4 MG/2 ML VIAL IVP STA (05:45)
[2018-04-13] MEDS ORDERED: KETOROLAC 30 MG/ML 1 ML VIAL IVP STA (05:45)
[2018-04-13] MEDS ORDERED: SODIUM CHLORIDE 0.9% 1,000 ML IV ONE (05:46)
--- NOTE | 2018-04-13 05:54 | ED ---
Abdominal Pain HPI - General Chief Complaint: Abdominal Pain Stated Complaint: Flank/ Abd Pain Time Seen by Provider: 04/13/18 05:39 Source: patient Mode of arrival: ambulatory Limitations: no limitations - History of Present Illness MD Complaint: flank pain Onset/Timin -: hour(s) Location: R flank Radiation: none Migration to: no migration Severity: severe Quality: sharp Consistency: constant Improves With: nothing Worsens With: nothing Associated Symptoms: nausea - Related Data Home Medications Medication Instructions Recorded Confirmed LORazepam [Ativan] 2 mg PO BID PRN 06/06/16 08/20/17 Albuterol Inhaler [Ventolin Hfa 2 puff INHALATION RT-QID PRN 08/20/17 08/20/17 Inhaler] Buprenorphine HCl/Naloxone HCl 1 film SL BID 08/20/17 08/20/17 [Suboxone 4 mg-1 mg Sl Film] Levothyroxine Sodium [Synthroid] 175 mcg PO DAILY 08/20/17 08/20/17 Omeprazole 20 mg PO BID 08/20/17 08/20/17 Pregabalin [Lyrica] 100 mg PO TID 08/20/17 08/20/17 QUEtiapine [SEROquel] 100 mg PO HS 08/20/17 08/20/17 lamoTRIgine [LaMICtal] 100 mg PO BID 08/20/17 08/20/17 traMADol HCL [Ultram] 50 mg PO Q6HR PRN 08/20/17 08/20/17 Previous Rx's Medication Instructions Recorded Ibuprofen [Motrin] 800 mg PO Q6H PRN 4 Days #16 tab 11/08/17 Hydrocodone/Acetaminophen [[place] 1 each PO Q6HR PRN #15 tab 04/13/18 5-325] Ondansetron Odt [Zofran ODT] 4 mg PO Q8HR PRN #10 tab 04/13/18 Tamsulosin [Flomax] 0.4 mg PO DAILY #14 cap 04/13/18 Allergies Allergy/AdvReac Type Severity Reaction Status Date / Time No Known Allergies Allergy Verified 04/13/18 05:13 Review of Systems ROS Statement: Those systems with pertinent positive or pertinent negative responses have been documented in the HPI. ROS Other: All systems not noted in ROS Statement are negative. Constitutional: Denies: fever, chills, weakness Respiratory: Denies: cough, dyspnea Cardiovascular: Denies: chest pain, palpitations Gastrointestinal: Reports: abdominal pain, nausea. Denies: vomiting, diarrhea, constipation, melena, hematochezia Genitourinary: Denies: dysuria, hematuria, testicular pain, testicular mass Musculoskeletal: Reports: back pain Skin: Denies: rash Neurological: Denies: headache Past Medical History Past Medical History: GERD/Reflux, Thyroid Disorder Additional Past Medical History / Comment(s): migraines, told heart murmer, thyroid cancer, arthritis, History of Any Multi-Drug Resistant Organisms: MRSA Date of last positivie culture/infection: 08/2014 MDRO Source:: left arm Past Surgical History: Ear Surgery, Hernia Repair Additional Past Surgical History / Comment(s): surgery for abscess on left arm from spider bite Past Anesthesia/Blood Transfusion Reactions: Motion Sickness Past Psychological History: Anxiety Smoking Status: Current every day smoker Past Alcohol Use History: None Reported Past Drug Use History: None Reported - Past Family History Mother Family Medical History: No Reported History General Exam Limitations: no limitations General appearance: alert, in distress Head exam: Present: atraumatic, normocephalic Eye exam: Present: normal appearance. Absent: scleral icterus, conjunctival injection Respiratory exam: Present: normal lung sounds bilaterally. Absent: respiratory distress, wheezes, rales, rhonchi, stridor Cardiovascular Exam: Present: regular rate, normal rhythm, normal heart sounds. Absent: systolic murmur, diastolic murmur, rubs, gallop GI/Abdominal exam: Present: soft. Absent: distended, tenderness, guarding, rebound, mass Extremities exam: Present: normal inspection, normal capillary refill. Absent: pedal edema, calf tenderness Back exam: Present: normal inspection. Absent: CVA tenderness (R), CVA tenderness (L) Neurological exam: Present: alert Skin exam: Present: warm, dry, intact, normal color. Absent: rash Course Vital Signs 04/13/18 04/13/18 04/13/18 05:10 06:22 06:53 Temperature 97.4 F L 98.1 F Pulse Rate 60 61 68 Respiratory 48 H 18 18 Rate Blood Pressure 148/91 135/93 126/64 O2 Sat by Pulse 99 99 100 Oximetry Medical Decision Making - Lab Data Result diagrams: 04/13/18 05:27 04/13/18 05:27 Lab Results 04/13/18 04/13/18 04/13/18 Range/Units 05:27 05:27 05:27 WBC 8.0 (3.8-10.6) k/uL RBC 4.66 (4.30-5.90) m/uL Hgb 13.8 (13.0-17.5) gm/dL Hct 42.0 (39.0-53.0) % MCV 90.0 (80.0-100.0) fL MCH 29.6 (25.0-35.0) pg MCHC 32.9 (31.0-37.0) g/dL RDW 13.4 (11.5-15.5) % Plt Count 217 (150-450) k/uL Neutrophils % 67 % Lymphocytes % 20 % Monocytes % 7 % Eosinophils % 3 % Basophils % 1 % Neutrophils # 5.3 (1.3-7.7) k/uL Lymphocytes # 1.6 (1.0-4.8) k/uL Monocytes # 0.6 (0-1.0) k/uL Eosinophils # 0.2 (0-0.7) k/uL Basophils # 0.1 (0-0.2) k/uL Sodium 140 (137-145) mmol/L Potassium 4.2 (3.5-5.1) mmol/L Chloride 110 H (98-107) mmol/L Carbon Dioxide 23 (22-30) mmol/L Anion Gap 7 mmol/L BUN 25 H (9-20) mg/dL Creatinine 1.17 (0.66-1.25) mg/dL Est GFR (CKD-EPI)AfAm >90 (>60 ml/min/1.73 sqM) Est GFR (CKD-EPI)NonAf 83 (>60 ml/min/1.73 sqM) Glucose 119 H (74-99) mg/dL Calcium 8.8 (8.4-10.2) mg/dL Total Bilirubin 0.2 (0.2-1.3) mg/dL AST 20 (17-59) U/L ALT 26 (21-72) U/L Alkaline Phosphatase 53 (38-126) U/L Total Protein 6.4 (6.3-8.2) g/dL Albumin 3.9 (3.5-5.0) g/dL Amylase 40 (30-110) U/L Lipase 155 (23-300) U/L Urine Color Yellow Urine Appearance Clear (Clear) Urine pH 6.0 (5.0-8.0) Ur Specific [place] 1.017 (1.001-1.035) Urine Protein Trace H (Negative) Urine Glucose (UA) Negative (Negative) Urine Ketones Negative (Negative) Urine Blood Large H (Negative) Urine Nitrite Negative (Negative) Urine Bilirubin Negative (Negative) Urine Urobilinogen <2.0 (<2.0) mg/dL Ur Leukocyte Esterase Negative (Negative) Urine RBC >182 H (0-5) /hpf Urine WBC 3 (0-5) /hpf Urine Mucus Rare H (None) /hpf Disposition Clinical Impression: Calculus of kidney Disposition: HOME SELF-CARE Condition: Good Instructions: Kidney Stones (ED) Prescriptions: Hydrocodone/Acetaminophen [[place] 5-325] 1 each PO Q6HR PRN #15 tab PRN Reason: Pain Ondansetron Odt [Zofran ODT] 4 mg PO Q8HR PRN #10 tab PRN Reason: Nausea Tamsulosin [Flomax] 0.4 mg PO DAILY #14 cap Is patient prescribed a controlled substance at d/c from ED?: No Referrals: Otf Flores DO [Primary Care Provider] - 1-2 days
[2018-04-13] MEDS ORDERED: MORPHINE SULFATE 4 MG/ML SYRINGE IV STA (06:02)
[2018-04-13 06:23] VITALS: RESP 18
--- NOTE | 2018-04-13 06:24 | CT ---
EXAM: CT Abdomen and Pelvis Without Intravenous Contrast CLINICAL HISTORY: Pain TECHNIQUE: Axial computed tomography images of the abdomen and pelvis without intravenous contrast. This CT exam was performed using one or more of the following dose reduction techniques: automated exposure control, adjustment of the mA and/or kV according to patient size, and/or use of iterative reconstruction technique. DLP 996.6 COMPARISON: No relevant prior studies available. FINDINGS: There is some motion artifact on this exam. Obstructive distal right ureteral stone measuring 3-4 mm in size. Obstructive changes mild. No appendicitis. Atelectasis. No bowel obstruction. Much of bowel underdistended limiting evaluation for wall thickening. No perienteric inflammatory changes. Osseous degenerative changes. Transitional lumbosacral left hemivertebra. IMPRESSION: Obstructive distal right ureteral stone measuring 3-4 mm in size. Obstructive changes mild. Incidental findings, as discussed above.
[2018-04-13 06:33] LABS: Basophils # (A) 0.1 k/uL (0-0.2); Basophils % (A) 1 %; Eosinophils # (A) 0.2 k/uL (0-0.7); Eosinophils % (A) 3 %; HGB 13.8 gm/dL (13.0-17.5); Lymphocytes # (A) 1.6 k/uL (1.0-4.8); Lymphocytes % (A) 20 %; MCH 29.6 pg (25.0-35.0); MCHC 32.9 g/dL (31.0-37.0); Mean Platelet Volume 6.5; Monocytes # (A) 0.6 k/uL (0-1.0); Monocytes % (A) 7 %; Neutrophils # (A) 5.3 k/uL (1.3-7.7); Neutrophils % (A) 67 %; Platelet Count 217 k/uL (150-450); RBC 4.66 m/uL (4.30-5.90); RDW 13.4 % (11.5-15.5)
[2018-04-13 06:41] LABS: Appearance,Urine Clear (Clear); Bilirubin,Urine Negative (Negative); Blood,Urine Large (Negative); Color,Urine Yellow; Glucose,Urine (UA) Negative (Negative); Ketones,Urine Negative (Negative); Leukocyte Esterase,Urine Negative (Negative); Mucus,Urine Rare /hpf; Nitrite,Urine Negative (Negative); Protein,Urine Trace (Negative); RBC,Urine >182 /hpf (0-5); Specific Gravity,Urine 1.017 (1.001-1.035); Urobilinogen,Urine <2.0 mg/dL (<2.0); WBC,Urine 3 /hpf (0-5)
[2018-04-13 06:47] LABS: ALT 26 U/L (21-72); AST 20 U/L (17-59); Albumin 3.9 g/dL (3.5-5.0); Alkaline Phosphatase 53 U/L (38-126); Amylase 40 U/L (30-110); Anion Gap 7 mmol/L; Blood Urea Nitrogen 25 mg/dL (9-20); Calcium 8.8 mg/dL (8.4-10.2); Carbon Dioxide 23 mmol/L (22-30); Chloride 110 mmol/L (98-107); Glucose 119 mg/dL (74-99); Lipase 155 U/L (23-300); Potassium 4.2 mmol/L (3.5-5.1); Sodium 140 mmol/L (137-145); Total Bilirubin 0.2 mg/dL (0.2-1.3); Total Protein 6.4 g/dL (6.3-8.2)
[2018-04-13] MEDS ORDERED: TAMSULOSIN 0.4 MG CAP.ER.24H PO STA (06:50)
[2018-04-13 06:56] VITALS: BP 126/64; PULSE 68; TEMP 98.1
== END 2018-04-13 07:04 | disposition home or self-care (01) ==
LOC: EC 04:58
DX: N20.0 Calculus of kidney (principal); K21.9 Gastro-esophageal reflux disease without esophagitis; F41.9 Anxiety disorder, unspecified; F17.200 Nicotine dependence, unspecified, uncomplicated; Z79.899 Other long term (current) drug therapy; Z86.14 Personal history of Methicillin resistant Staphylococcus aureus infection; Z85.850 Personal history of malignant neoplasm of thyroid; Z86.69 Personal history of other diseases of the nervous system and sense organs
CPT/HCPCS: 36415; 80053; 82150; 83690; 85025; 81001; 74176; 99284; 96374; 96375 ×2; 96361; J2270; J2405; J1885

== ENCOUNTER 2018-04-30 21:03 | Emergency (ER) | payer OTHER ==
[2018-04-30 21:31] VITALS: BP 155/83; PULSE 64; RESP 16; TEMP 98.2
[2018-04-30] MEDS ORDERED: SULFAMETH-TMP DS STARTER PACK 2 TAB BTL PO STA (22:00)
--- NOTE | 2018-04-30 22:03 | ED ---
Skin/Abscess/FB HPI - General Source: patient Mode of arrival: ambulatory Limitations: no limitations <Cherelle Olivares - Last Filed: 05/01/18 05:22> <Rajni Dooley - Last Filed: 05/04/18 08:59> - General Chief complaint: Skin/Abscess/Foreign Body Stated complaint: Abcess on arm Time Seen by Provider: 04/30/18 21:48 - History of Present Illness Initial comments: 32-year-old male patient presents to the emergency department today for evaluation of abscess to the left forearm. Patient does admit to IV drug use, states that he last injected to the area 2 days ago. Patient states the area has become more red, swollen, and painful since the injection. He denies any fevers or chills. Denies any drainage from the area. Denies any history of abscess or cellulitis. Patient denies any recent rash, shortness breath, chest pain, abdominal pain, nausea, vomiting, diarrhea, constipation, back pain, numbness, tingling, dizziness, weakness, hematuria, dysuria, urinary urgency, urinary frequency, headache, visual changes, or any other complaints. (Cherelle Olivares) - Related Data Home Medications Medication Instructions Recorded Confirmed LORazepam [Ativan] 2 mg PO BID PRN 06/06/16 08/20/17 Albuterol Inhaler [Ventolin Hfa 2 puff INHALATION RT-QID PRN 08/20/17 08/20/17 Inhaler] Buprenorphine HCl/Naloxone HCl 1 film SL BID 08/20/17 08/20/17 [Suboxone 4 mg-1 mg Sl Film] Levothyroxine Sodium [Synthroid] 175 mcg PO DAILY 08/20/17 08/20/17 Omeprazole 20 mg PO BID 08/20/17 08/20/17 Pregabalin [Lyrica] 100 mg PO TID 08/20/17 08/20/17 QUEtiapine [SEROquel] 100 mg PO HS 08/20/17 08/20/17 lamoTRIgine [LaMICtal] 100 mg PO BID 08/20/17 08/20/17 traMADol HCL [Ultram] 50 mg PO Q6HR PRN 08/20/17 08/20/17 Previous Rx's Medication Instructions Recorded Ibuprofen [Motrin] 800 mg PO Q6H PRN 4 Days #16 tab 11/08/17 Hydrocodone/Acetaminophen [[place] 1 each PO Q6HR PRN #15 tab 04/13/18 5-325] Ondansetron Odt [Zofran ODT] 4 mg PO Q8HR PRN #10 tab 04/13/18 Tamsulosin [Flomax] 0.4 mg PO DAILY #14 cap 04/13/18 Cephalexin [Keflex] 500 mg PO Q6H #40 cap 04/30/18 Sulfamethoxazole/Trimethoprim 1 each PO BID #20 tablet 04/30/18 [Bactrim DS 800-160 mg] Allergies Allergy/AdvReac Type Severity Reaction Status Date / Time No Known Allergies Allergy Verified 04/30/18 21:31 Review of Systems ROS Other: All systems not noted in ROS Statement are negative. <Cherelle Olivares - Last Filed: 05/01/18 05:22> ROS Other: All systems not noted in ROS Statement are negative. <Rajni Dooley - Last Filed: 05/04/18 08:59> ROS Statement: Those systems with pertinent positive or pertinent negative responses have been documented in the HPI. Past Medical History Past Medical History: GERD/Reflux, Thyroid Disorder Additional Past Medical History / Comment(s): migraines, told heart murmer, thyroid cancer, arthritis, History of Any Multi-Drug Resistant Organisms: MRSA Date of last positivie culture/infection: 08/2014 MDRO Source:: left arm Past Surgical History: Ear Surgery, Hernia Repair Additional Past Surgical History / Comment(s): surgery for abscess on left arm from spider bite Past Anesthesia/Blood Transfusion Reactions: Motion Sickness Past Psychological History: Anxiety Smoking Status: Current every day smoker Past Alcohol Use History: None Reported Past Drug Use History: None Reported - Past Family History Mother Family Medical History: No Reported History <Cherelle Olivares - Last Filed: 05/01/18 05:22> General Exam Limitations: no limitations General appearance: alert, in no apparent distress, other (Physical well- developed, well-nourished adult male patient in no acute distress. Vital signs upon presentation are temperature 98.2F, pulse 64, respirations 16, blood pressure 155/83, pulse ox 98% on room air.) Respiratory exam: Present: normal lung sounds bilaterally. Absent: respiratory distress, wheezes, rales, rhonchi, stridor Cardiovascular Exam: Present: regular rate, normal rhythm, normal heart sounds. Absent: systolic murmur, diastolic murmur, rubs, gallop, clicks Extremities exam: Present: full ROM, normal capillary refill, other (Patient has circular area of erythema with a central area of induration to the volar aspect of the left forearm. There is no fluctuance or evidence of drainable abscess. Appearance is consistent with cellulitis.). Absent: normal inspection , tenderness, pedal edema, joint swelling, calf tenderness Neurological exam: Present: alert, oriented X3, CN II-XII intact Psychiatric exam: Present: normal affect, normal mood Skin exam: Present: warm, dry, intact, normal color. Absent: rash <Cherelle Olivares - Last Filed: 05/01/18 05:22> Vital Signs 04/30/18 21:28 Temperature 98.2 F Pulse Rate 64 Respiratory 16 Rate Blood Pressure 155/83 O2 Sat by Pulse 98 Oximetry Medical Decision Making <Cherelle Olivares - Last Filed: 05/01/18 05:22> <Rajni Dooley - Last Filed: 05/04/18 08:59> - Medical Decision Making 32-year-old male patient presents to the emergency department today for evaluation of possible abscess of left forearm. Physical examination did reveal a circular area of cellulitis with a central area of induration to the volar aspect of the left forearm. There is no evidence of fluctuance or drainable abscess. Patient does admit to using IV drugs in this is a previous injection site. Patient will be started on Keflex and Bactrim. He is instructed to complete his antibiotics in full. A line was drawn around the area of cellulitis he is instructed to return if this worsens. He is instructed to follow-up with his primary care physician for recheck in 1-2 days. Return parameters were discussed in detail. He verbalizes understanding and agrees with this plan. (Cherelle Olivares) I was available for consultation in the emergency department. The history and physical exam were done by the midlevel provider. I was consulted for this patient's care. I reviewed the case with the midlevel provider and based on their presentation of the patient, I agree with the assessment, medical decision making and plan of care as documented. (Rajni Dooley) Disposition Is patient prescribed a controlled substance at d/c from ED?: No Time of Disposition: 22:03 <Cherelle Olivares - Last Filed: 05/01/18 05:22> <Rajni Dooley - Last Filed: 05/04/18 08:59> Clinical Impression: Cellulitis of arm Disposition: HOME SELF-CARE Condition: Good Instructions: Cellulitis (ED), Abscess (ED) Additional Instructions: Apply warm compresses to the left forearm at least 4 times daily. Complete both antibiotics in full, even if you are feeling better. Follow up with your primary care physician for recheck of the area in 1-2 days. Return to the Emergency Department for any new, worsening, or concerning symptoms. Prescriptions: Cephalexin [Keflex] 500 mg PO Q6H #40 cap Sulfamethoxazole/Trimethoprim [Bactrim DS 800-160 mg] 1 each PO BID #20 tablet Referrals: None,Stated [Primary Care Provider] - 1-2 days
== END 2018-04-30 22:12 | disposition home or self-care (01) ==
LOC: EC 21:03
DX: L03.114 Cellulitis of left upper limb (principal); F41.9 Anxiety disorder, unspecified; K21.9 Gastro-esophageal reflux disease without esophagitis; F17.200 Nicotine dependence, unspecified, uncomplicated; Z85.850 Personal history of malignant neoplasm of thyroid; Z79.890 Hormone replacement therapy; Z79.899 Other long term (current) drug therapy
CPT/HCPCS: 99283

== ENCOUNTER → 2018-12-24 | Outpatient (CLI) | payer SELFPAY | END | disposition home or self-care (01) | LOC: LABWHC1 15:52 | PROVIDERS: ATTEND Internal Medicine Endocrinology, Diabetes & Metabolism | DX: C73 Malignant neoplasm of thyroid gland (principal) | CPT/HCPCS: 36415; 84432; 84443; 86800 ==

== ENCOUNTER 2019-09-28 15:37 | Emergency (ER) | payer OTHER ==
[2019-09-28 15:57] VITALS: TEMP 98
--- NOTE | 2019-09-28 16:16 | ED ---
General Adult HPI - General Chief complaint: Overdose Stated complaint: Overdose Time Seen by Provider: 09/28/19 15:41 Source: EMS, RN notes reviewed, old records reviewed Mode of arrival: EMS Limitations: no limitations - History of Present Illness Initial comments: Patient is a 33-year-old male with a history of opiate use disorder. He reports that he is currently on Suboxone and he is being weaned off. He reports that he was cleaning a closet today and found an oldof heroin and decided to use it today. This was a unintentional overdose. Patient states that he has been sober for many months. Patient's called EMS after she found him unresponsive. He was administered 2 mg of Narcan IM and was actually given supplemental oxygen and bagged by EMS prior to arrival. He then became more alert and aroused and upon arrival to the emergency department he is still groggy but alert and oriented 3. - Related Data Home Medications Medication Instructions Recorded Confirmed LORazepam [Ativan] 2 mg PO BID PRN 06/06/16 08/20/17 Albuterol Inhaler (Mhu) [Ventolin 2 puff INHALATION RT-QID PRN 08/20/17 08/20/17 Hfa Inhaler] Buprenorphine HCl/Naloxone HCl 1 film SL BID 08/20/17 08/20/17 [Suboxone 4 mg-1 mg Sl Film] Levothyroxine Sodium [Synthroid] 175 mcg PO DAILY 08/20/17 08/20/17 Omeprazole 20 mg PO BID 08/20/17 08/20/17 Pregabalin [Lyrica] 100 mg PO TID 08/20/17 08/20/17 QUEtiapine [SEROquel] 100 mg PO HS 08/20/17 08/20/17 lamoTRIgine [LaMICtal] 100 mg PO BID 08/20/17 08/20/17 traMADol HCL [Ultram] 50 mg PO Q6HR PRN 08/20/17 08/20/17 Previous Rx's Medication Instructions Recorded Ibuprofen [Motrin] 800 mg PO Q6H PRN 4 Days #16 tab 11/08/17 Hydrocodone/Acetaminophen [[place] 1 each PO Q6HR PRN #15 tab 04/13/18 5-325] Ondansetron Odt [Zofran ODT] 4 mg PO Q8HR PRN #10 tab 04/13/18 Tamsulosin [Flomax] 0.4 mg PO DAILY #14 cap 04/13/18 Cephalexin [Keflex] 500 mg PO Q6H #40 cap 04/30/18 Sulfamethoxazole/Trimethoprim 1 each PO BID #20 tablet 04/30/18 [Bactrim DS 800-160 mg] Allergies Allergy/AdvReac Type Severity Reaction Status Date / Time No Known Allergies Allergy Verified 09/28/19 15:57 Review of Systems ROS Statement: Those systems with pertinent positive or pertinent negative responses have been documented in the HPI. ROS Other: All systems not noted in ROS Statement are negative. Past Medical History Past Medical History: GERD/Reflux, Thyroid Disorder Additional Past Medical History / Comment(s): migraines, told heart murmer, thyroid cancer, arthritis, History of Any Multi-Drug Resistant Organisms: MRSA Date of last positivie culture/infection: 08/2014 MDRO Source:: left arm Past Surgical History: Ear Surgery, Hernia Repair Additional Past Surgical History / Comment(s): surgery for abscess on left arm from spider bite Past Anesthesia/Blood Transfusion Reactions: Motion Sickness Past Psychological History: Anxiety Smoking Status: Current every day smoker Past Alcohol Use History: None Reported Past Drug Use History: Heroin - Past Family History Mother Family Medical History: No Reported History General Exam - General Exam Comments Initial Comments: Alert and oriented 33-year-old male. No significant distress. Limitations: no limitations General appearance: alert Head exam: Present: atraumatic, normocephalic, normal inspection Eye exam: Present: normal appearance, PERRL, EOMI. Absent: scleral icterus, conjunctival injection, periorbital swelling ENT exam: Present: normal exam, mucous membranes moist Neck exam: Present: normal inspection. Absent: tenderness, meningismus, lymphadenopathy Respiratory exam: Present: normal lung sounds bilaterally. Absent: respiratory distress, wheezes, rales, rhonchi, stridor Cardiovascular Exam: Present: regular rate, normal rhythm, normal heart sounds. Absent: systolic murmur, diastolic murmur, rubs, gallop, clicks GI/Abdominal exam: Present: soft, normal bowel sounds. Absent: distended, tenderness, guarding, rebound, rigid Extremities exam: Present: normal inspection, full ROM, normal capillary refill. Absent: tenderness, pedal edema, joint swelling, calf tenderness Back exam: Present: normal inspection Neurological exam: Present: alert, oriented X3, CN II-XII intact Psychiatric exam: Present: normal affect, normal mood Skin exam: Present: warm, dry, intact, normal color. Absent: rash Course Vital Signs 09/28/19 09/28/19 15:47 16:37 Temperature 98 F 98 F Pulse Rate 89 84 Respiratory 18 16 Rate Blood Pressure 94/62 123/87 O2 Sat by Pulse 98 96 Oximetry Medical Decision Making - Medical Decision Making 33-year-old male presents emergency room today for an accidental heroin overdose. Patient was administered Narcan by EMS. Upon arrival he is somewhat groggy but alert and oriented. He is been cooperative emergency department. Patient has been alert and oriented no further hypoxic episodes. Patient was r eevaluated and resting in bed. His was contacted and is going to bring the Patient home. Advised Patient follow-up with outpatient rehab services. Disposition Clinical Impression: Overdose of heroin Disposition: HOME SELF-CARE Condition: Good Instructions (If sedation given, give patient instructions): Adult Overdose (ED) Additional Instructions: Patient advised to follow-up with outpatient counseling services as well as resources for rehab. Return to the emergency department if any alarming signs symptoms occur. Is patient prescribed a controlled substance at d/c from ED?: No Referrals: Nonstaff,Physician [Primary Care Provider] - 1-2 days Time of Disposition: 18:04
[2019-09-28 16:39] VITALS: PULSE 84
[2019-09-28 18:09] VITALS: BP 128/83; RESP 18
== END 2019-09-28 18:17 | disposition home or self-care (01) ==
LOC: EC 15:37
DX: T40.1X1A Poisoning by heroin, accidental (unintentional), initial encounter (principal); K21.9 Gastro-esophageal reflux disease without esophagitis; E07.9 Disorder of thyroid, unspecified; G43.909 Migraine, unspecified, not intractable, without status migrainosus; F41.9 Anxiety disorder, unspecified; F17.200 Nicotine dependence, unspecified, uncomplicated; Z79.890 Hormone replacement therapy; Z79.899 Other long term (current) drug therapy; Z85.850 Personal history of malignant neoplasm of thyroid; Z86.14 Personal history of Methicillin resistant Staphylococcus aureus infection
CPT/HCPCS: 99284

== ENCOUNTER 2020-02-25 20:34 | Emergency (ER) | payer OTHER ==
[2020-02-25] MEDS ORDERED: ONDANSETRON 4 MG/2 ML VIAL IVP STA (21:32)
[2020-02-25] MEDS ORDERED: SODIUM CHLORIDE 0.9% 1,000 ML IV ONE (21:53)
[2020-02-25 21:54] LABS: Basophils # (A) 0.1 k/uL (0-0.2); Basophils % (A) 1 %; Eosinophils # (A) 0.3 k/uL (0-0.7); Eosinophils % (A) 3 %; HCT 49.6 % (39.0-53.0); HGB 16.5 gm/dL (13.0-17.5); Lymphocytes # (A) 1.4 k/uL (1.0-4.8); Lymphocytes % (A) 14 %; MCH 28.3 pg (25.0-35.0); MCHC 33.2 g/dL (31.0-37.0); MCV 85.1 fL (80.0-100.0); Mean Platelet Volume 6.2; Monocytes # (A) 0.7 k/uL (0-1.0); Monocytes % (A) 7 %; Neutrophils # (A) 7.5 k/uL (1.3-7.7); Neutrophils % (A) 74 %; Platelet Count 319 k/uL (150-450); RBC 5.82 m/uL (4.30-5.90); RDW 12.5 % (11.5-15.5); WBC 10.1 k/uL (3.8-10.6)
--- NOTE | 2020-02-25 21:56 | XR ---
EXAMINATION TYPE: XR KUB DATE OF EXAM: 02/25/2020 COMPARISON: None INDICATION: Abdomen pain, vomiting TECHNIQUE: Single view abdomen upright FINDINGS: There is a normal bowel gas pattern. Psoas margins are normal. No organomegaly is present. No suspicious calcifications are evident. IMPRESSION: 1. Unremarkable Abdomen
[2020-02-25 22:08] LABS: ALT 32 U/L (4-49); AST 35 U/L (17-59); African American GFR (CKD) >90 (>60 ml/min/1.73 sqM); Albumin 5.4 g/dL (3.5-5.0); Alkaline Phosphatase 126 U/L (38-126); Anion Gap 11 mmol/L; Blood Urea Nitrogen 20 mg/dL (9-20); Calcium 10.6 mg/dL (8.4-10.2); Carbon Dioxide 25 mmol/L (22-30); Chloride 105 mmol/L (98-107); Glucose 126 mg/dL (74-99); Non-African American GFR(CKD) >90 (>60 ml/min/1.73 sqM); Potassium 4.3 mmol/L (3.5-5.1); Sodium 141 mmol/L (137-145); Total Bilirubin 0.6 mg/dL (0.2-1.3); Total Protein 8.8 g/dL (6.3-8.2)
--- NOTE | 2020-02-25 22:14 | XR ---
EXAMINATION TYPE: XR chest 2V DATE OF EXAM: 02/25/2020 COMPARISON: 08/20/2017 HISTORY: Vomiting TECHNIQUE: FINDINGS: Heart and mediastinum are normal. Lungs are clear. Diaphragm is normal. Bony thorax appears normal. IMPRESSION: Normal chest. No change.
[2020-02-25 22:24] LABS: Amorphous Sediment,Urine Occasional /hpf; Appearance,Urine Cloudy (Clear); Bilirubin,Urine Negative (Negative); Blood,Urine Negative (Negative); Color,Urine Yellow; Glucose,Urine (UA) Negative (Negative); Ketones,Urine Negative (Negative); Leukocyte Esterase,Urine Negative (Negative); Mucus,Urine Moderate /hpf; Nitrite,Urine Negative (Negative); Protein,Urine 1+ (Negative); RBC,Urine 1 /hpf (0-5); Specific Gravity,Urine 1.032 (1.001-1.035); Urobilinogen,Urine <2.0 mg/dL (<2.0); WBC,Urine 2 /hpf (0-5)
[2020-02-25 22:35] LABS: Amphetamine Screen,Urine Not Detected (NotDetected); Barbiturate Screen,Urine Not Detected (NotDetected); Benzodiazepines Screen,Urine Not Detected (NotDetected); Cocaine Screen,Urine Not Detected (NotDetected); Methadone Screen, Urine Not Detected (NotDetected); Opiate Screen,Urine Not Detected (NotDetected); Oxycodone Screen, Urine Not Detected (NotDetected); Phencyclidine Screen,Urine Not Detected (NotDetected); Tricyclic Antidepressant,Urine Not Detected (NotDetected); Urn Cannabinoid Scrn Detected (NotDetected)
--- NOTE | 2020-02-25 22:54 | ED ---
General Adult HPI - General Chief complaint: Nausea/Vomiting/Diarrhea Stated complaint: Vomiting Time Seen by Provider: 02/25/20 21:03 Source: patient, RN notes reviewed, old records reviewed Mode of arrival: ambulatory Limitations: no limitations - History of Present Illness Initial comments: 34-year-old male patient to ED for evaluation patient reports that he has been having nausea vomiting diarrhea today. Some abdominal cramping. Denies any other acute complaints. Systemic: Pt denies fatigue, fever/chills, rash. Pt denies weakness, night sweats, weight loss. Neuro: Pt denies headache, visual disturbances, syncope or pre-syncope. HEENT: Pt denies ocular discharge or irritation, otalgia, rhinorrhea, pharyngitis or notable lymphadenopathy. Cardiopulmonary: Pt denies chest pain, SOB, heart palpitations, dyspnea on exertion. : Pt denies dysuria, burning w/ urination, frequency/urgency. Denies new onset urinary or bowel incontinence. MSK: Pt denies myalgia, loss of strength or function in extremities. Neuro: Pt denies new onset weakness, paresthesias. - Related Data Home Medications Medication Instructions Recorded Confirmed LORazepam [Ativan] 2 mg PO BID PRN 06/06/16 08/20/17 Albuterol Inhaler (Mhu) [Ventolin 2 puff INHALATION RT-QID PRN 08/20/17 08/20/17 Hfa Inhaler] Buprenorphine HCl/Naloxone HCl 1 film SL BID 08/20/17 08/20/17 [Suboxone 4 mg-1 mg Sl Film] Levothyroxine Sodium [Synthroid] 175 mcg PO DAILY 08/20/17 08/20/17 Omeprazole 20 mg PO BID 08/20/17 08/20/17 Pregabalin [Lyrica] 100 mg PO TID 08/20/17 08/20/17 QUEtiapine [SEROquel] 100 mg PO HS 08/20/17 08/20/17 lamoTRIgine [LaMICtal] 100 mg PO BID 08/20/17 08/20/17 traMADol HCL [Ultram] 50 mg PO Q6HR PRN 08/20/17 08/20/17 Previous Rx's Medication Instructions Recorded Ibuprofen [Motrin] 800 mg PO Q6H PRN 4 Days #16 tab 11/08/17 Hydrocodone/Acetaminophen [[place] 1 each PO Q6HR PRN #15 tab 04/13/18 5-325] Ondansetron Odt [Zofran ODT] 4 mg PO Q8HR PRN #10 tab 04/13/18 Tamsulosin [Flomax] 0.4 mg PO DAILY #14 cap 04/13/18 Cephalexin [Keflex] 500 mg PO Q6H #40 cap 04/30/18 Sulfamethoxazole/Trimethoprim 1 each PO BID #20 tablet 04/30/18 [Bactrim DS 800-160 mg] Allergies Allergy/AdvReac Type Severity Reaction Status Date / Time No Known Allergies Allergy Verified 02/25/20 20:42 Review of Systems ROS Statement: Those systems with pertinent positive or pertinent negative responses have been documented in the HPI. ROS Other: All systems not noted in ROS Statement are negative. Past Medical History Past Medical History: GERD/Reflux, Thyroid Disorder Additional Past Medical History / Comment(s): migraines, told heart murmer, thyroid cancer, arthritis, History of Any Multi-Drug Resistant Organisms: MRSA Date of last positivie culture/infection: 08/2014 MDRO Source:: left arm Past Surgical History: Ear Surgery, Hernia Repair Additional Past Surgical History / Comment(s): surgery for abscess on left arm from spider bite Past Anesthesia/Blood Transfusion Reactions: Motion Sickness Past Psychological History: Anxiety Smoking Status: Current every day smoker Past Alcohol Use History: None Reported Past Drug Use History: Heroin - Past Family History Mother Family Medical History: No Reported History General Exam - General Exam Comments Initial Comments: Constitutional: NAD, AOX3, Pt has pleasant affect. HEENT: NC/AT, trachea midline, neck supple, no lymphadenopathy. Posterior pharynx non erythematous, without exudates. External ears appear normal, without discharge. Mucous membranes moist. Eyes PERRLA, EOM intact. There is no scleral icterus. No pallor noted. Cardiopulmonary: RRR, no murmurs, rubs or gallops, no JVD noted. Lungs CTAB in anterior and posterior diaz. No peripheral edema. Abdominal exam: Abdomen soft and non-distended. Abdomen non-tender to palpation in all 4 quadrants. Bowel sounds active in LLQ. No hepatosplenomegaly. No ec chymosis Neuro: CN II-XII grossly intact. No nuchal rigidity. No raccon eyes, no honeycutt sign, no hemotympanum. No cervical spinal tenderness. MSK: Full active ROM in upper and lower extremities, 5/5 stregnth. Limitations: no limitations Course Vital Signs 02/25/20 20:40 Temperature 98.1 F Pulse Rate 60 Respiratory 18 Rate Blood Pressure 143/84 O2 Sat by Pulse 96 Oximetry Medical Decision Making - Medical Decision Making 34-year-old male patient to ED for nausea vomiting diarrhea. Abdominal cramping. Vital signs stable, afebrile. Chest x-ray KUB negative for acute pathology. Of investigations unremarkable. Patient administered fluids. Patient tolerating oral intake without difficulty. Consistent with gastritis 6 syndrome. Patient discharged to follow up with primary care tomorrow and return to ER if any worsening symptoms. Case discussed with Dr. Quan. - Lab Data Result diagrams: 02/25/20 21:42 02/25/20 21:42 Lab Results 02/25/20 02/25/20 02/25/20 Range/Units 21:42 21:42 21:42 WBC 10.1 (3.8-10.6) k/uL RBC 5.82 (4.30-5.90) m/uL Hgb 16.5 (13.0-17.5) gm/dL Hct 49.6 (39.0-53.0) % MCV 85.1 (80.0-100.0) fL MCH 28.3 (25.0-35.0) pg MCHC 33.2 (31.0-37.0) g/dL RDW 12.5 (11.5-15.5) % Plt Count 319 (150-450) k/uL Neutrophils % 74 % Lymphocytes % 14 % Monocytes % 7 % Eosinophils % 3 % Basophils % 1 % Neutrophils # 7.5 (1.3-7.7) k/uL Lymphocytes # 1.4 (1.0-4.8) k/uL Monocytes # 0.7 (0-1.0) k/uL Eosinophils # 0.3 (0-0.7) k/uL Basophils # 0.1 (0-0.2) k/uL Sodium 141 (137-145) mmol/L Potassium 4.3 (3.5-5.1) mmol/L Chloride 105 (98-107) mmol/L Carbon Dioxide 25 (22-30) mmol/L Anion Gap 11 mmol/L BUN 20 (9-20) mg/dL Creatinine 1.01 (0.66-1.25) mg/dL Est GFR (CKD-EPI)AfAm >90 (>60 ml/min/1.73 sqM) Est GFR (CKD-EPI)NonAf >90 (>60 ml/min/1.73 sqM) Glucose 126 H (74-99) mg/dL Plasma Lactic Acid Fausto (0.7-2.0) mmol/L Calcium 10.6 H (8.4-10.2) mg/dL Total Bilirubin 0.6 (0.2-1.3) mg/dL AST 35 (17-59) U/L ALT 32 (4-49) U/L Alkaline Phosphatase 126 (38-126) U/L Total Protein 8.8 H (6.3-8.2) g/dL Albumin 5.4 H (3.5-5.0) g/dL Lipase 108 (23-300) U/L Urine Color Yellow Urine Appearance Cloudy (Clear) Urine pH 8.0 (5.0-8.0) Ur Specific [place] 1.032 (1.001-1.035) Urine Protein 1+ H (Negative) Urine Glucose (UA) Negative (Negative) Urine Ketones Negative (Negative) Urine Blood Negative (Negative) Urine Nitrite Negative (Negative) Urine Bilirubin Negative (Negative) Urine Urobilinogen <2.0 (<2.0) mg/dL Ur Leukocyte Esterase Negative (Negative) Urine RBC 1 (0-5) /hpf Urine WBC 2 (0-5) /hpf Amorphous Sediment Occasional H (None) /hpf Urine Mucus Moderate H (None) /hpf Urine Opiates Screen Not Detected (NotDetected) Ur Oxycodone Screen Not Detected (NotDetected) Urine Methadone Screen Not Detected (NotDetected) Ur Propoxyphene Screen Not Detected (NotDetected) Ur Barbiturates Screen Not Detected (NotDetected) U Tricyclic Antidepress Not Detected (NotDetected) Ur Phencyclidine Scrn Not Detected (NotDetected) Ur Amphetamines Screen Not Detected (NotDetected) U Methamphetamines Scrn Not Detected (NotDetected) U Benzodiazepines Scrn Not Detected (NotDetected) Urine Cocaine Screen Not Detected (NotDetected) U Marijuana (THC) Screen Detected H (NotDetected) 02/25/20 Range/Units 21:42 WBC (3.8-10.6) k/uL RBC (4.30-5.90) m/uL Hgb (13.0-17.5) gm/dL Hct (39.0-53.0) % MCV (80.0-100.0) fL MCH (25.0-35.0) pg MCHC (31.0-37.0) g/dL RDW (11.5-15.5) % Plt Count (150-450) k/uL Neutrophils % % Lymphocytes % % Monocytes % % Eosinophils % % Basophils % % Neutrophils # (1.3-7.7) k/uL Lymphocytes # (1.0-4.8) k/uL Monocytes # (0-1.0) k/uL Eosinophils # (0-0.7) k/uL Basophils # (0-0.2) k/uL Sodium (137-145) mmol/L Potassium (3.5-5.1) mmol/L Chloride (98-107) mmol/L Carbon Dioxide (22-30) mmol/L Anion Gap mmol/L BUN (9-20) mg/dL Creatinine (0.66-1.25) mg/dL Est GFR (CKD-EPI)AfAm (>60 ml/min/1.73 sqM) Est GFR (CKD-EPI)NonAf (>60 ml/min/1.73 sqM) Glucose (74-99) mg/dL Plasma Lactic Acid Fausto 1.6 (0.7-2.0) mmol/L Calcium (8.4-10.2) mg/dL Total Bilirubin (0.2-1.3) mg/dL AST (17-59) U/L ALT (4-49) U/L Alkaline Phosphatase (38-126) U/L Total Protein (6.3-8.2) g/dL Albumin (3.5-5.0) g/dL Lipase (23-300) U/L Urine Color Urine Appearance (Clear) Urine pH (5.0-8.0) Ur Specific [place] (1.001-1.035) Urine Protein (Negative) Urine Glucose (UA) (Negative) Urine Ketones (Negative) Urine Blood (Negative) Urine Nitrite (Negative) Urine Bilirubin (Negative) Urine Urobilinogen (<2.0) mg/dL Ur Leukocyte Esterase (Negative) Urine RBC (0-5) /hpf Urine WBC (0-5) /hpf Amorphous Sediment (None) /hpf Urine Mucus (None) /hpf Urine Opiates Screen (NotDetected) Ur Oxycodone Screen (NotDetected) Urine Methadone Screen (NotDetected) Ur Propoxyphene Screen (NotDetected) Ur Barbiturates Screen (NotDetected) U Tricyclic Antidepress (NotDetected) Ur Phencyclidine Scrn (NotDetected) Ur Amphetamines Screen (NotDetected) U Methamphetamines Scrn (NotDetected) U Benzodiazepines Scrn (NotDetected) Urine Cocaine Screen (NotDetected) U Marijuana (THC) Screen (NotDetected) Disposition Clinical Impression: Nausea vomiting and diarrhea Disposition: HOME SELF-CARE Condition: Stable Instructions (If sedation given, give patient instructions): Acute Nausea and Vomiting (ED), Acute Diarrhea (ED) Additional Instructions: Follow up with PCP tomorrow. Continue to drink lots of fluids. Return to ED with any worsening symptoms. Is patient prescribed a controlled substance at d/c from ED?: No Referrals: Nonstaff,Physician [Primary Care Provider] - 1-2 days
[2020-02-25 23:08] VITALS: BP 134/75; PULSE 65; RESP 16; TEMP 98
== END 2020-02-25 23:05 | disposition home or self-care (01) ==
LOC: EC 20:34
DX: R11.2 Nausea with vomiting, unspecified (principal); R19.7 Diarrhea, unspecified; R10.9 Unspecified abdominal pain; K21.9 Gastro-esophageal reflux disease without esophagitis; E07.9 Disorder of thyroid, unspecified; F41.9 Anxiety disorder, unspecified; F17.200 Nicotine dependence, unspecified, uncomplicated; Z79.899 Other long term (current) drug therapy; Z79.891 Long term (current) use of opiate analgesic; Z79.890 Hormone replacement therapy; Z86.14 Personal history of Methicillin resistant Staphylococcus aureus infection; Z85.850 Personal history of malignant neoplasm of thyroid
CPT/HCPCS: 36415; 80053; 83605; 83690; 85025; 81001; 80306; 71046; 74018; 99284; 96374; 96361; J2405

== ENCOUNTER → 2020-03-26 | Outpatient (CLI) | payer OTHER ==
--- NOTE | 2020-03-27 07:19 | US ---
EXAMINATION TYPE: US thyroid st tissue head/neck DATE OF EXAM: 03/26/2020 COMPARISON: 01/26/2018 CLINICAL HISTORY: C73 MALIGNANT NEPOLASM OF THYROID GLAND. Thyroid ectomy. GLAND SIZE: Right Lobe: 1.3 x 1.8 x .5 cm Residual tissue seen as in previous. Overall Parenchyma: homogenous Left Lobe: 1.2 x 1.9 x .5 cm Residual tissue seen as in previous. Overall Parenchyma: homogeneous NODULES RIGHT: # of nodules measured on right: 0 LEFT: # of nodules measured on left: 0 ISTHMUS: # of nodules measured in the isthmus: 0 Bilateral neck scanned, no evidence of lymphadenopathy. IMPRESSION: 1. No sizable thyroid nodule. Similar appearing residual thyroid tissue.
== END | disposition home or self-care (01) ==
LOC: RADUSWWP 16:01
PROVIDERS: ATTEND Internal Medicine Endocrinology, Diabetes & Metabolism
DX: C73 Malignant neoplasm of thyroid gland (principal)
CPT/HCPCS: 76536; 84432; 84443; 86800

== ENCOUNTER 2020-09-15 20:59 | Emergency (ER) | payer OTHER ==
[2020-09-15 21:07] VITALS: BP 115/83; PULSE 103; RESP 20; TEMP 98
--- NOTE | 2020-09-15 21:40 | ED ---
General Adult HPI - General Chief complaint: Abdominal Pain Stated complaint: Back Pain Time Seen by Provider: 09/15/20 21:23 Source: patient, RN notes reviewed Mode of arrival: ambulatory Limitations: no limitations - History of Present Illness Initial comments: 34-year-old white male presents to the emergency room with complaints of right flank pain for the past 2 weeks which is now onto the left flank and right testicle today. Patient has history of kidney stones. Patient states took Motrin and baclofen 2 hours prior to arrival with minimal relief. Patient states the pain is worse with a cough, sometimes can get better with position changes but difficult to find position of comfort. Patient also has a history of thyroid cancer, GERD and migraine headaches. Patient denies fever, hematuria, nausea vomiting or diarrhea. Temperature 98.0 heart rate of 103 -: week(s) (2) Location: back Radiation: other (Right groin) Severity scale (1-10): 8 Quality: constant Consistency: constant Improves with: none Worsens with: movement, other (Bowel movements) Associated Symptoms: denies other symptoms Treatments Prior to Arrival: NSAID (Motrin and baclofen 2 hours prior to arrival) - Related Data Home Medications Medication Instructions Recorded Confirmed LORazepam [Ativan] 2 mg PO BID PRN 06/06/16 08/20/17 Albuterol Inhaler (Mhu) [Ventolin 2 puff INHALATION RT-QID PRN 08/20/17 08/20/17 Hfa Inhaler] Buprenorphine HCl/Naloxone HCl 1 film SL BID 08/20/17 08/20/17 [Suboxone 4 mg-1 mg Sl Film] Levothyroxine Sodium [Synthroid] 175 mcg PO DAILY 08/20/17 08/20/17 Omeprazole 20 mg PO BID 08/20/17 08/20/17 Pregabalin [Lyrica] 100 mg PO TID 08/20/17 08/20/17 QUEtiapine [SEROquel] 100 mg PO HS 08/20/17 08/20/17 lamoTRIgine [LaMICtal] 100 mg PO BID 08/20/17 08/20/17 traMADol HCL [Ultram] 50 mg PO Q6HR PRN 08/20/17 08/20/17 Previous Rx's Medication Instructions Recorded Ibuprofen [Motrin] 800 mg PO Q6H PRN 4 Days #16 tab 11/08/17 Hydrocodone/Acetaminophen [Benedict 1 each PO Q6HR PRN #15 tab 04/13/18 5-325] Ondansetron Odt [Zofran ODT] 4 mg PO Q8HR PRN #10 tab 04/13/18 Tamsulosin [Flomax] 0.4 mg PO DAILY #14 cap 04/13/18 Cephalexin [Keflex] 500 mg PO Q6H #40 cap 04/30/18 Sulfamethoxazole/Trimethoprim 1 each PO BID #20 tablet 04/30/18 [Bactrim DS 800-160 mg] Allergies Allergy/AdvReac Type Severity Reaction Status Date / Time No Known Allergies Allergy Verified 09/15/20 21:07 Review of Systems ROS Statement: Those systems with pertinent positive or pertinent negative responses have been documented in the HPI. ROS Other: All systems not noted in ROS Statement are negative. Past Medical History Past Medical History: Cancer, GERD/Reflux, Thyroid Disorder Additional Past Medical History / Comment(s): migraines, told heart murmer, thyroid cancer, arthritis, kidney stones History of Any Multi-Drug Resistant Organisms: MRSA Date of last positivie culture/infection: 08/2014 MDRO Source:: left arm Past Surgical History: Ear Surgery, Hernia Repair Additional Past Surgical History / Comment(s): surgery for abscess on left arm from spider bite Past Anesthesia/Blood Transfusion Reactions: Motion Sickness Past Psychological History: Anxiety Smoking Status: Current every day smoker Past Alcohol Use History: None Reported Past Drug Use History: Heroin, Marijuana - Past Family History Mother Family Medical History: No Reported History General Exam Limitations: no limitations General appearance: alert, in no apparent distress Head exam: Present: atraumatic, normocephalic, normal inspection ENT exam: Present: normal exam, mucous membranes moist Neck exam: Present: normal inspection, full ROM. Absent: tenderness, meningismus, lymphadenopathy Respiratory exam: Present: decreased breath sounds. Absent: respiratory distress, wheezes, rales, chest wall tenderness, accessory muscle use Cardiovascular Exam: Present: normal rhythm, tachycardia, normal heart sounds. Absent: systolic murmur, diastolic murmur, rubs, gallop, clicks GI/Abdominal exam: Present: soft, normal bowel sounds. Absent: distended, tenderness, guarding, rebound, rigid exam: Present: normal inspection, circumcision. Absent: testicular tenderness, urethral discharge, scrotal swelling Extremities exam: Present: normal inspection, full ROM, normal capillary refill. Absent: tenderness, pedal edema, joint swelling, calf tenderness Back exam: Present: full ROM. Absent: tenderness, CVA tenderness (R), CVA tenderness (L), paraspinal tenderness, vertebral tenderness Neurological exam: Present: alert, oriented X3, CN II-XII intact Psychiatric exam: Present: normal affect, normal mood Skin exam: Present: warm, dry, intact, normal color. Absent: rash, cyanosis, diaphoretic Course Vital Signs 09/15/20 21:04 Temperature 98.0 F Pulse Rate 103 H Respiratory 20 Rate Blood Pressure 115/83 O2 Sat by Pulse 96 Oximetry Medical Decision Making - Medical Decision Making Kidney stones, urinary tract infection, musculoskeletal strain. KUB x-ray shows no mass, no obstruction, no pneumoperitoneum, no calcifications. WBC count 7.9, hemoglobin and hematocrit is 14.4 and 43.4 respectively, feeling of 24, creatinine of 1.38. Patient has a history of elevated creatinine level of 1.80 in July 2017. UA shows no blood, no leukocyte esterase, trace protein which patient was hydrated with 1 L of normal saline. Patient states received minimal relief with IV medications but is ready to go home. This is likely a muscle strain. There is no evidence of kidney stone or urinary tract infection. Patient will be directed to follow up with primary care doctor in 1 week increase fluid intake. Case discussed with Dr. Parham. - Lab Data Result diagrams: 09/15/20 21:47 09/15/20 21:47 Lab Results 09/15/20 09/15/20 09/15/20 Range/Units 21:45 21:47 21:47 WBC 7.9 (3.8-10.6) k/uL RBC 5.17 (4.30-5.90) m/uL Hgb 14.4 (13.0-17.5) gm/dL Hct 43.4 (39.0-53.0) % MCV 83.9 (80.0-100.0) fL MCH 27.8 (25.0-35.0) pg MCHC 33.2 (31.0-37.0) g/dL RDW 13.3 (11.5-15.5) % Plt Count 258 (150-450) k/uL MPV 6.5 Neutrophils % 50 % Lymphocytes % 35 % Monocytes % 7 % Eosinophils % 5 % Basophils % 1 % Neutrophils # 3.9 (1.3-7.7) k/uL Lymphocytes # 2.8 (1.0-4.8) k/uL Monocytes # 0.6 (0-1.0) k/uL Eosinophils # 0.4 (0-0.7) k/uL Basophils # 0.1 (0-0.2) k/uL Sodium 142 (137-145) mmol/L Potassium 4.2 (3.5-5.1) mmol/L Chloride 109 H (98-107) mmol/L Carbon Dioxide 25 (22-30) mmol/L Anion Gap 8 mmol/L BUN 24 H (9-20) mg/dL Creatinine 1.38 H (0.66-1.25) mg/dL Est GFR (CKD-EPI)AfAm 77 (>60 ml/min/1.73 sqM) Est GFR (CKD-EPI)NonAf 67 (>60 ml/min/1.73 sqM) Glucose 94 (74-99) mg/dL Calcium 9.7 (8.4-10.2) mg/dL Total Bilirubin <0.1 L (0.2-1.3) mg/dL AST 28 (17-59) U/L ALT 23 (4-49) U/L Alkaline Phosphatase 84 (38-126) U/L Total Protein 7.2 (6.3-8.2) g/dL Albumin 4.7 (3.5-5.0) g/dL Amylase 47 (30-110) U/L Lipase 226 (23-300) U/L Urine Color Yellow Urine Appearance Clear (Clear) Urine pH 6.5 (5.0-8.0) Ur Specific [place] 1.033 (1.001-1.035) Urine Protein Trace H (Negative) Urine Glucose (UA) Negative (Negative) Urine Ketones Negative (Negative) Urine Blood Negative (Negative) Urine Nitrite Negative (Negative) Urine Bilirubin Negative (Negative) Urine Urobilinogen <2.0 (<2.0) mg/dL Ur Leukocyte Esterase Negative (Negative) Disposition Clinical Impression: Muscle strain Disposition: HOME SELF-CARE Condition: Fair Instructions (If sedation given, give patient instructions): Musculoskeletal Pain (ED) Additional Instructions: Increase your fluid intake Tylenol as needed [id number] for pain. Follow- up with the primary care doctor in 1 week Is patient prescribed a controlled substance at d/c from ED?: No Referrals: Nonstaff,Physician [Primary Care Provider] - 1-2 days Time of Disposition: 23:18
[2020-09-15] MEDS ORDERED: SODIUM CHLORIDE 0.9% 1,000 ML IV STA (21:44)
[2020-09-15] MEDS ORDERED: KETOROLAC 15 MG/ML 1 ML VIAL IVP STA (21:44)
[2020-09-15 21:54] LABS: Appearance,Urine Clear (Clear); Bilirubin,Urine Negative (Negative); Blood,Urine Negative (Negative); Color,Urine Yellow; Glucose,Urine (UA) Negative (Negative); Ketones,Urine Negative (Negative); Leukocyte Esterase,Urine Negative (Negative); Nitrite,Urine Negative (Negative); PH, Urine 6.5 (5.0-8.0); Protein,Urine Trace (Negative); Specific Gravity,Urine 1.033 (1.001-1.035); Urobilinogen,Urine <2.0 mg/dL (<2.0)
[2020-09-15 22:08] LABS: Basophils # (A) 0.1 k/uL (0-0.2); Basophils % (A) 1 %; Eosinophils # (A) 0.4 k/uL (0-0.7); Eosinophils % (A) 5 %; HCT 43.4 % (39.0-53.0); HGB 14.4 gm/dL (13.0-17.5); Lymphocytes # (A) 2.8 k/uL (1.0-4.8); Lymphocytes % (A) 35 %; MCH 27.8 pg (25.0-35.0); MCHC 33.2 g/dL (31.0-37.0); MCV 83.9 fL (80.0-100.0); Mean Platelet Volume 6.5; Monocytes # (A) 0.6 k/uL (0-1.0); Monocytes % (A) 7 %; Neutrophils # (A) 3.9 k/uL (1.3-7.7); Neutrophils % (A) 50 %; Platelet Count 258 k/uL (150-450); RBC 5.17 m/uL (4.30-5.90); RDW 13.3 % (11.5-15.5); WBC 7.9 k/uL (3.8-10.6)
--- NOTE | 2020-09-15 22:16 | XR ---
EXAMINATION TYPE: XR KUB DATE OF EXAM: 09/15/2020 COMPARISON: 02/25/2020 HISTORY: Abdominal pain. 2 views upright were obtained. Bowel gas pattern is normal. There is no sign of intestinal obstruction or pneumoperitoneum. Fecal p attern is normal. There are no pathologic calcifications. Lung bases are clear. There is no evidence of a mass. IMPRESSION: Nonacute abdomen.
[2020-09-15 22:22] LABS: ALT 23 U/L (4-49); AST 28 U/L (17-59); African American GFR (CKD) 77 (>60 ml/min/1.73 sqM); Albumin 4.7 g/dL (3.5-5.0); Alkaline Phosphatase 84 U/L (38-126); Amylase 47 U/L (30-110); Anion Gap 8 mmol/L; Blood Urea Nitrogen 24 mg/dL (9-20); Calcium 9.7 mg/dL (8.4-10.2); Carbon Dioxide 25 mmol/L (22-30); Chloride 109 mmol/L (98-107); Glucose 94 mg/dL (74-99); Lipase 226 U/L (23-300); Non-African American GFR(CKD) 67 (>60 ml/min/1.73 sqM); Potassium 4.2 mmol/L (3.5-5.1); Sodium 142 mmol/L (137-145); Total Bilirubin <0.1 mg/dL (0.2-1.3); Total Protein 7.2 g/dL (6.3-8.2)
== END 2020-09-16 00:08 | disposition home or self-care (01) ==
LOC: EC 20:59
DX: S39.011A Strain of muscle, fascia and tendon of abdomen, initial encounter (principal); F17.200 Nicotine dependence, unspecified, uncomplicated; F41.9 Anxiety disorder, unspecified; K21.9 Gastro-esophageal reflux disease without esophagitis; Z85.850 Personal history of malignant neoplasm of thyroid; Z87.442 Personal history of urinary calculi; X58.XXXA Exposure to other specified factors, initial encounter
CPT/HCPCS: 36415; 80053; 82150; 83690; 85025; 81003; 74018; 99284; 96374; 96361 ×2; J1885

== ENCOUNTER → 2021-04-05 | Outpatient (CLI) | payer OTHER ==
--- NOTE | 2021-04-05 16:09 | XR ---
Left foot HISTORY: R 22.42, remote history of trauma second digit 3 views the left foot Bone mineralization, joint spaces and alignment are maintained. There is soft tissue swelling present . Some degenerative change present at the first metatarsophalangeal joint. IMPRESSION: No fracture or dislocation.
== END | disposition home or self-care (01) ==
LOC: RADXRMAIN 14:20
DX: R22.42 Localized swelling, mass and lump, left lower limb (principal)

== ENCOUNTER → 2021-04-22 | Outpatient (CLI) | payer OTHER ==
--- NOTE | 2021-04-22 15:37 | US ---
EXAMINATION TYPE: US thyroid st tissue head/neck DATE OF EXAM: 04/22/2021 COMPARISON: US 2019 CLINICAL HISTORY: C73 Malignant neoplasm of thyroid gland. GLAND SIZE: Right Lobe: 1.2 x 1.5 x 0.7 cm residual tissue Overall Parenchyma: homogenous Left Lobe: 1.3 x 1.5 x 0.6 cm residual tissue Overall Parenchyma: homogeneous NODULES RIGHT: # of nodules measured on right: 0 LEFT: # of nodules measured on left: 0 ISTHMUS: # of nodules measured in the isthmus: 0 Bilateral neck scanned, no evidence of lymphadenopathy. IMPRESSION: Postoperative changes with residual thyroid tissue noted.
== END | disposition home or self-care (01) ==
LOC: RADUSWWP 14:49
PROVIDERS: ATTEND Internal Medicine Endocrinology, Diabetes & Metabolism
DX: C73 Malignant neoplasm of thyroid gland (principal)
CPT/HCPCS: 76536; 84432; 84443; 86800

== ENCOUNTER 2021-07-15 13:04 | Day surgery (SDC) | payer OTHER ==
[2021-07-15 13:47] VITALS: BP 107/56; PULSE 44; RESP 16; TEMP 98.6
== END 2021-07-15 14:22 | disposition home or self-care (01) ==
LOC: RADPROMAIN 13:04
PROVIDERS: ATTEND Internal Medicine Endocrinology, Diabetes & Metabolism
DX: Z53.9 Procedure and treatment not carried out, unspecified reason (principal)

== ENCOUNTER 2021-12-05 07:37 | Day surgery (SDC) | payer OTHER ==
[2021-12-03 08:59] VITALS: BMI 27.3
[~2021-12-05 07:37] MED LIST changes: +ALPRAZolam 0.25 MG TAB PO PRN; +ALPRAZolam 0.5 MG TAB PO PRN; +ASPIRIN 325 MG TAB PO STA; +ATORVASTATIN 80 MG TAB PO STA; -DEXAMETHASONE SOD PHOSPHATE 10 MG/ML 1 ML VIAL IV ONE; +HEPARIN SODIUM,PORCINE 10,000 UNIT in SODIUM CHLORIDE 0.9% 1,000 ML IRRIGATION PRN; +HEPARIN SODIUM,PORCINE 2,500 UNIT in SODIUM CHLORIDE 0.9% 250 ML IRRIGATION PRN; -HEPARIN SODIUM,PORCINE 5,000 UNIT/ML 1 ML VIAL SQ ONE; -LIDOCAINE 1% 20 ML VIAL (10MG/ML) FOR IV START INTRADERMA PRN; +NITROGLYCERIN SL TABS 0.4 MG TAB SUBLINGUAL PRN; -ONDANSETRON 4 MG/2 ML VIAL IVP ONE; -Pre Op ABX Message 1 EACH MISC MISCELLANE ONE; -SCOPOLAMINE 1.5MG/72HR PATCH TRANSDERM ONE; +SODIUM CHLORIDE 0.9% 1,000 ML in EMPTY BAG 1 BAG IV SCH
[2021-12-05 08:03] VITALS: RESP 16; TEMP 98.7
[2021-12-05 08:17] LABS: Basophils % (A) 1 %; Eosinophils # (A) 0.3 k/uL (0-0.7); Eosinophils % (A) 4 %; HCT 48.4 % (39.0-53.0); HGB 15.6 gm/dL (13.0-17.5); Lymphocytes # (A) 2.6 k/uL (1.0-4.8); Lymphocytes % (A) 37 %; MCH 29.3 pg (25.0-35.0); MCHC 32.3 g/dL (31.0-37.0); MCV 90.8 fL (80.0-100.0); Mean Platelet Volume 6.8; Monocytes # (A) 0.5 k/uL (0-1.0); Monocytes % (A) 8 %; Neutrophils # (A) 3.3 k/uL (1.3-7.7); Neutrophils % (A) 49 %; Platelet Count 305 k/uL (150-450); RBC 5.33 m/uL (4.30-5.90); RDW 12.6 % (11.5-15.5); WBC 6.8 k/uL (3.8-10.6)
[2021-12-05 08:38] LABS: African American GFR (CKD) >90 (>60 ml/min/1.73 sqM); Anion Gap 9 mmol/L; Blood Urea Nitrogen 14 mg/dL (9-20); Calcium 9.3 mg/dL (8.4-10.2); Carbon Dioxide 28 mmol/L (22-30); Chloride 102 mmol/L (98-107); Glucose 106 mg/dL (74-99); Non-African American GFR(CKD) >90 (>60 ml/min/1.73 sqM); Potassium 4.4 mmol/L (3.5-5.1); Sodium 139 mmol/L (137-145)
[2021-12-05] MEDS ORDERED: VERAPAMIL 2.5 MG/ML 2 ML AMP ONE (09:09)
[2021-12-05] MEDS ORDERED: HEPARIN SODIUM 1,000 UN/ML (10ML VL) ONE (09:33)
[2021-12-05] MEDS ORDERED: fentaNYL (PF) 50 MCG/ML 2 ML AMP ONE (09:33)
[2021-12-05] MEDS ORDERED: fentaNYL (PF) 50 MCG/ML 2 ML AMP IV ONE (09:40)
[2021-12-05] MEDS ORDERED: LIDOCAINE 1% INJ 10MG/ML (5 ML VIAL-PF) SQ ONE (09:40)
[2021-12-05] MEDS ORDERED: MIDAZOLAM 2 MG/2 ML VIAL IV ONE (09:40)
[2021-12-05] MEDS ORDERED: VERAPAMIL SYRINGE (5 MG/10 ML) INTRAARTER ONE (09:45)
[2021-12-05] MEDS ORDERED: HEPARIN SODIUM 1,000 UN/ML (10ML VL) IV ONE (09:49)
[2021-12-05] MEDS ORDERED: IOPAMIDOL-370 125ML BTL INJ ONE (09:55)
--- NOTE | 2021-12-05 13:10 | CC ---
CARDIAC CATHETERIZATION REPORT INDICATIONS: Cardiomyopathy with frequent PVCs and abnormal stress test. PROCEDURE NOTE: After obtaining informed consent, left heart catheterization and coronary angiogram were performed using 3.5 size Melissa right and left catheters via the right radial artery. Hemodynamics were obtained with the right Melissa. The patient tolerated the procedure well without any obvious immediate complications. A TR band was used as per standard protocol for hemostasis. After obtaining informed consent, the right radial artery access was obtained using a micropuncture needle. Catheters and wires were floated into the ascending aorta under fluoroscopic guidance. The patient received 5 mg of verapamil and 5000 units of IV heparin per protocol. FINDINGS: Hemodynamics: Left ventricular end-diastolic pressure is 14 mm. There is no significant gradient across the aortic valve. Left ventriculogram: Left ventriculogram is not performed. ANGIOGRAPHIC DATA: Left main coronary artery: Left main coronary artery is a normal-sized vessel and is free of stenosis, divides into left anterior descending coronary artery and circumflex coronary artery. LAD and its branches, circumflex coronary artery and its branches are free of significant stenosis. Right coronary artery was subselectively engaged, it is a codominant system and is free of significant disease. CONCLUSIONS: 1. Normal coronary arteries. 2. Nonischemic cardiomyopathy. PLAN: The patient's cardiomyopathy may be related to the frequent PVCs or prior history of heroin. I will treat him with a beta blockers for the PVCs and he is stable to go through the thyroid biopsy that he was planning to do. MMRICKIL / SANJUANAN: [id number] /
[2021-12-05 15:35] VITALS: BP 124/72; PULSE 52
== END 2021-12-05 15:05 | disposition home or self-care (01) ==
LOC: CATHCVL 07:37
PROVIDERS: ATTEND Internal Medicine Cardiovascular Disease
DX: I42.9 Cardiomyopathy, unspecified (principal)
CPT/HCPCS: 93458; 80048; 85025; C1769; J2250; J2001; J3010; J1644; Q9967

== ENCOUNTER 2021-12-18 13:02 | Day surgery (SDC) | payer OTHER ==
--- NOTE | 2021-12-05 11:00 | LTR ---
Dear I performed cardiac catheterization of Gabe Dooley, the detailed catheterization note is enclosed for records. In brief, the cardiac catheterization revealed normal coronary arteries. I believe patient's cardiomyopathy may be related to the frequent ventricular ectopy and heroin use in the past. I will continue him on beta blockers. Thank you for giving me the privilege to participate in the care of this pleasant gentleman. MMTRUNG / CHICO: [id number] /
[2021-12-18 13:13] VITALS: BP 131/76; PULSE 61; RESP 16; TEMP 97.6
--- NOTE | 2021-12-18 14:28 | US ---
ULTRASOUND GUIDED FNA THYROID BIOPSY: CLINICAL HISTORY: Questionable residual thyroid tissue FINDINGS: The procedure was explained to the patient. The risks, complications, benefits and alternatives were discussed and any questions were answered. Informed consent was obtained. Patient was placed supin e on the ultrasound table and prepped and draped in the usual sterile fashion. Utilizing a 25 gauge needle, was attempted to be placed in the suspected area of residual tissue but had a firm exterior w here the needle would not traverse. Therefore a FNA could not be performed bilaterally. Patient was stable throughout the procedure. Pathology is pending. All elements of maximal barrier technique were utilized. IMPRESSION: 1. Deferred ultrasound guided FNA thyroid biopsy as discussed above. Recommend short-term follow-up C T of the neck for further evaluation to determine if there is is a residual thyroid tissue and any ty pe of scarring or calcification along the periphery of the region.
== END 2021-12-18 14:15 | disposition home or self-care (01) ==
LOC: RADPROMAIN 13:02
PROVIDERS: ATTEND Internal Medicine Endocrinology, Diabetes & Metabolism
DX: C73 Malignant neoplasm of thyroid gland (principal); Z53.8 Procedure and treatment not carried out for other reasons; Z98.61 Coronary angioplasty status
CPT/HCPCS: 76536

== ENCOUNTER → 2022-12-12 | Outpatient (CLI) | payer OTHER ==
[2022-12-12 17:48] LABS: T4, Free (Free Thyroxine) 1.21 ng/dL (0.80-1.80)
== END | disposition home or self-care (01) ==
LOC: LABWHC1 09:57
PROVIDERS: ATTEND Internal Medicine Endocrinology, Diabetes & Metabolism
DX: C73 Malignant neoplasm of thyroid gland (principal)
CPT/HCPCS: 36415; 84439; 84443

== ENCOUNTER → 2023-09-16 | Outpatient (CLI) | payer OTHER ==
[2023-09-16 22:19] LABS: T4, Free (Free Thyroxine) 1.17 ng/dL (0.80-1.80)
--- NOTE | 2023-09-16 22:44 | US ---
EXAMINATION TYPE: US thyroid st tissue head/neck DATE OF EXAM: 09/16/2023 COMPARISON: NONE CLINICAL INDICATION: Male, 37 years old with history of C73 MALIGNANT NEOPLASM OF THYROID GLAND; thyr oidectomy GLAND SIZE: Possible residual tissue, as it was labeled on previous US prior, versus normal anatomy Right side measures 1.7 x 1.4 x 2.5 cm. Previous measurement 1.2 x 1.5 x 2.1 cm Left side measures 1.7 x 1.4 x 2.2 cm. Previous measurement 1.3 x 1.5 x 2.4 cm. Bilateral neck scanned, no evidence of lymphadenopathy. IMPRESSION: Appears to be some residual thyroid tissue within the thyroid beds, these have enlarged slightly over the interval. Consider confirmation with nuclear medicine thyroid scan. 2017 ACR TI-RADS LEVEL: TR-RADS 1 - BENIGN: No FNA *Highest TI-RADS level nodule reported
== END | disposition home or self-care (01) ==
LOC: RADUSWWP 15:36
PROVIDERS: ATTEND Internal Medicine Endocrinology, Diabetes & Metabolism
DX: C73 Malignant neoplasm of thyroid gland (principal); E89.0 Postprocedural hypothyroidism
CPT/HCPCS: 36415; 76536; 84432; 84439; 84443; 86800

== ENCOUNTER 2023-11-23 13:00 | Outpatient (CLI) | payer OTHER ==
[2023-11-23] MEDS: THYROTROPIN ALFA 1.1 MG VIAL IM ONE (13:39)
[2023-11-24 12:59] VITALS: BP 91/44; PULSE 60; RESP 16; TEMP 98
[2023-11-24] MEDS: THYROTROPIN ALFA 1.1 MG VIAL IM ONE (13:00)
--- NOTE | 2023-11-27 12:44 | NM ---
EXAMINATION TYPE: NM I-131 Whole Body Imaging DATE OF EXAM: 11/26/2023 Comparison: 10/09/2016 Clinical History: 38-year-old male C73 thyroid ca TECHNIQUE: Following the oral administration of 4.21 mCi I-131, whole body scan was performed 48 hour s after radiotracer administration. FINDINGS: There is physiologic uptake within the salivary glands, nasopharynx, and also within the stomach, col on, and bladder. Some additional tracer activity in the expected region of the oral cavity likely due to excreted activity within the saliva. No residual/recurrent activity identified in the region of the thyroidectomy bed or cervical jules ch ains. No other areas of unexpected activity are identified. IMPRESSION: No scintigraphic evidence for metastatic disease. Ongoing follow-up with tumor markers as clinically indicated.
== END 2023-11-24 13:00 | disposition home or self-care (01) ==
LOC: RADNMMAIN 13:00
PROVIDERS: ATTEND Internal Medicine Endocrinology, Diabetes & Metabolism
DX: C73 Malignant neoplasm of thyroid gland (principal)
CPT/HCPCS: 78018

== ENCOUNTER → 2024-04-01 | Outpatient (CLI) | payer OTHER ==
[2024-04-01 19:02] LABS: Blood Urea Nitrogen 29.2 mg/dL (9.0-27.0); Carbon Dioxide 26.6 mmol/L (21.6-31.8); Chloride 105 mmol/L (96-109); Sodium 142 mmol/L (135-145)
[2024-04-01 20:18] LABS: Basophils # (A) 0.05 X 10*3/uL (0.00-0.10); Basophils % (A) 0.6 %; Eosinophils # (A) 0.19 X 10*3/uL (0.04-0.35); Eosinophils % (A) 2.4 %; HCT 43.8 % (39.6-50.0); HGB 14.4 g/dL (13.0-17.0); Lymphocytes # (A) 2.32 X 10*3/uL (0.90-5.00); Lymphocytes % (A) 28.9 %; MCH 29.8 pg (27.0-32.0); MCHC 32.9 g/dL (32.0-37.0); MCV 90.7 FL (80.0-97.0); Mean Platelet Volume 9.8 FL (9.5-12.2); Monocytes # (A) 0.59 X 10*3/uL (0.20-1.00); Monocytes % (A) 7.3 %; NRBC Per 100 WBC 0.02 X 10*3/uL (0.00-0.01); Neutrophils # (A) 4.85 X 10*3/uL (1.80-7.70); Neutrophils % (A) 60.4 %; Platelet Count 314 X 10*3/uL (140-440); RBC 4.83 X 10*6/uL (4.40-5.60); RDW 12.5 % (11.5-14.5); WBC 8.03 X 10*3/uL (4.50-10.00)
== END | disposition home or self-care (01) ==
LOC: LABPAT 14:43
PROVIDERS: ATTEND Internal Medicine Clinical Cardiac Electrophysiology
DX: Z01.812 Encounter for preprocedural laboratory examination (principal); I42.9 Cardiomyopathy, unspecified
CPT/HCPCS: 80051; 82565; 84443; 84520; 85025

== ENCOUNTER → 2024-04-01 | Outpatient (CLI) | payer OTHER | END | disposition home or self-care (01) | LOC: LABWHC1 14:40 | PROVIDERS: ATTEND Internal Medicine Endocrinology, Diabetes & Metabolism | DX: C73 Malignant neoplasm of thyroid gland (principal) | CPT/HCPCS: 36415; 84432; 86800 ==

== ENCOUNTER → 2024-05-02 | Outpatient (CLI) | payer OTHER ==
--- NOTE | 2024-05-03 08:36 | US ---
EXAMINATION TYPE: US thyroid st tissue head/neck DATE OF EXAM: 05/02/2024 COMPARISON: NM & US CLINICAL INDICATION: Male, 38 years old with history of C73 MALIGNANT NEOPLASM OF THYROID GLAND; H/O bilateral thyroidectomy, possible residual tissue TECHNIQUE: Grayscale and color Doppler imaging of the thyroid gland. FINDINGS: GLAND SIZE: Right Lobe: Surgically absent Left Lobe: Surgically absent Isthmus Thickness: Surgically absent NODULES RIGHT: # of nodules measured on right: 0 LEFT: # of nodules measured on left: 0 ISTHMUS: # of nodules measured in the isthmus: 0 Bilateral neck scanned, no evidence of lymphadenopathy. [facility] [employer] notes: Bilateral thyroid beds appeared wnl, symmetrical with no definite residual tissue identified consistent with prior Nuc Med study findings. Prior ultrasound scans showing possible res idual tissue, today, felt more likely to be the area of thyroid cartilage- superior to thyroid bed bi laterally. IMPRESSION: Similar appearance to the thyroidectomy beds with possible residual tissue superiorly on either side. No suspicious nodule is seen. Ongoing appropriate follow-up recommended. [facility], , 05/03/2024 8:33 AM
== END | disposition home or self-care (01) ==
LOC: RADUSWWP 15:50
PROVIDERS: ATTEND Internal Medicine Endocrinology, Diabetes & Metabolism
DX: C73 Malignant neoplasm of thyroid gland (principal); E89.0 Postprocedural hypothyroidism
CPT/HCPCS: 76536

== ENCOUNTER 2024-05-23 12:49 | Day surgery (SDC) | payer OTHER ==
[~2024-05-23 12:49] MED LIST changes: -ALPRAZolam 0.25 MG TAB PO PRN; -ALPRAZolam 0.5 MG TAB PO PRN; -ASPIRIN 325 MG TAB PO STA; -ATORVASTATIN 80 MG TAB PO STA; -HEPARIN SODIUM,PORCINE 10,000 UNIT in SODIUM CHLORIDE 0.9% 1,000 ML IRRIGATION PRN; -HEPARIN SODIUM,PORCINE 2,500 UNIT in SODIUM CHLORIDE 0.9% 250 ML IRRIGATION PRN; +HYDROmorphone 0.5 MG/0.5 ML SYRINGE IVP PRN; +MIDAZOLAM 2 MG/2 ML VIAL IV PRN; -NITROGLYCERIN SL TABS 0.4 MG TAB SUBLINGUAL PRN; -SODIUM CHLORIDE 0.9% 1,000 ML in EMPTY BAG 1 BAG IV SCH
[2024-05-23] MEDS ORDERED: ISOPROTERENOL 250 MCG/1.25 ML SYR IV ONE (14:12)
[2024-05-23] MEDS ORDERED: KETOROLAC 30 MG/ML 1 ML VIAL ONE (14:12)
[2024-05-23] MEDS ORDERED: fentaNYL (PF) 50 MCG/ML 2 ML AMP ONE (14:12)
[2024-05-23] MEDS ORDERED: HYDROmorphone (PF) 1 MG/ML ONE (14:12)
[2024-05-23] MEDS ORDERED: MIDAZOLAM 2 MG/2 ML VIAL ONE (14:12)
[2024-05-23 14:31] LABS: Basophils % (A) 1 %; Eosinophils # (A) 0.2 k/uL (0-0.7); Eosinophils % (A) 4 %; HGB 13.8 gm/dL (13.0-17.5); Lymphocytes # (A) 1.3 k/uL (1.0-4.8); Lymphocytes % (A) 21 %; MCH 29.3 pg (25.0-35.0); MCHC 32.9 g/dL (31.0-37.0); MCV 89.3 fL (80.0-100.0); Mean Platelet Volume 6.5; Monocytes # (A) 0.8 k/uL (0-1.0); Monocytes % (A) 13 %; Neutrophils # (A) 3.7 k/uL (1.3-7.7); Neutrophils % (A) 61 %; Platelet Count 233 k/uL (150-450); RBC 4.71 m/uL (4.30-5.90); RDW 12.6 % (11.5-15.5); WBC 6.1 k/uL (3.8-10.6)
[2024-05-23] MEDS: IV FLUID CONTINUATION 1,000 ML IV ONE (14:32)
[2024-05-23] MEDS: HEPARIN SODIUM,PORCINE 10,000 UNIT in SODIUM CHLORIDE 0.9% 1,000 ML IRRIGATION ONE (14:32)
[2024-05-23] MEDS: HEPARIN SODIUM (1,000 UNIT/ML) 1,000 UNIT in SODIUM CHLORIDE 0.9% 1,000 ML IRRIGATION ONE (14:32)
[2024-05-23 14:37] LABS: ALT 27 U/L (4-49); AST 30 U/L (17-59); African American GFR (CKD) >90 (>60 ml/min/1.73 sqM); Albumin 4.1 g/dL (3.5-5.0); Alkaline Phosphatase 66 U/L (38-126); Anion Gap 7 mmol/L; Blood Urea Nitrogen 18 mg/dL (9-20); Calcium 9.3 mg/dL (8.4-10.2); Carbon Dioxide 28 mmol/L (22-30); Chloride 102 mmol/L (98-107); Glucose 82 mg/dL (74-99); Non-African American GFR(CKD) >90 (>60 ml/min/1.73 sqM); Sodium 137 mmol/L (137-145); Total Bilirubin 0.4 mg/dL (0.2-1.3); Total Protein 6.3 g/dL (6.3-8.2)
[2024-05-23] MEDS: LIDOCAINE 1% INJ 10MG/ML (20 ML MDV) SQ ONE (14:52)
[2024-05-23] MEDS: LACTATED RINGERS 1,000 ML IV SCH (17:26)
[2024-05-23] MEDS: SODIUM CHLORIDE 0.9% 1,000 ML IV SCH (17:26)
[2024-05-23] MEDS ORDERED: DICYCLOMINE 20 MG TAB PO PRN (20:21)
--- NOTE | 2024-05-23 20:26 | P.HPCAR ---
History of Present Illness This is Dr. 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 As a result he has developed mild cardiomyopathy with global hypokinesis ejection fraction 45% Frequent PVCs noted ROS: No fever chills or rigors, no cough, phlegm or expectoration, no nausea, vomiting or diarrhea, no hematuria, dysuria, no musculoskeletal complaints, no strokes or seizures, no skin lesions. EXAMINATION: Pulse rate in the 60s, blood pressure 113/73 mmHg Normal heart sounds normal S1 normal S2 Normal breath sounds Irregular rhythm No lower extremity edema No JVD No orthopnea REVIEW OF LABS, ECG & MEDICAL DATA White count 6.1 thousand, hemoglobin 13.8, platelet count 233,000 Sodium 137 potassium 4.0 both normal BUN 18 creatinine 0.8 Normal renal function Normal TSH of 0.9 Physical Exam Vitals: Vital Signs Temp Pulse Pulse Resp BP BP Pulse Ox 05/23/24 19:10 97.8 F 78 17 115/67 98 05/23/24 18:28 63 16 113/73 99 05/23/24 18:00 60 16 108/70 98 05/23/24 17:45 62 16 112/73 96 05/23/24 17:30 58 L 16 120/74 96 05/23/24 17:15 62 16 118/74 100 05/23/24 17:00 97.7 F 63 16 124/77 99 05/23/24 14:09 98.0 F 67 16 128/79 95 Intake and Output 05/23/24 05/23/24 05/23/24 06:59 14:59 22:59 Intake Total 1261 118 Balance 1261 118 Intake: IV 1261 Oral 118 Other: Weight 97 kg 97 kg Past Medical History Past Medical History: Cancer, GERD/Reflux, Thyroid Disorder Additional Past Medical History / Comment(s): migraines, thyroid cancer, arthritis, kidney stones, has a lot of pvc's per pt, see dr Wynn's h & p History of Any Multi-Drug Resistant Organisms: MRSA Date of last positivie culture/infection: 08/2014 MDRO Source:: left arm Past Surgical History: Ear Surgery, Hernia Repair Additional Past Surgical History / Comment(s): surgery for abscess on left arm from spider bite, thyroidectomy, I-131 therapy, Past Anesthesia/Blood Transfusion Reactions: Motion Sickness Additional Past Anesthesia/Blood Transfusion Reaction / Comment(s): "High tolerance to medications, woke up during surgeries before". Past Psychological History: Anxiety, Panic Disorder Additional Psychological History / Comment(s): under control at this time. Smoking Status: Current some day smoker Past Alcohol Use History: None Reported Additional Past Alcohol Use History / Comment(s): smokes 5-7 cigarettes daily for 10 yrs Past Drug Use History: Heroin, Marijuana Additional Drug Use History / Comment(s): Hx of "pain killer abuse, heroin a couple times", states has had no pain killers, street drugs or Marijuana in 2 1/2 yrs. - Past Family History Mother Family Medical History: No Reported History Physical Examination Vital Signs Temp Pulse Pulse Resp BP BP Pulse Ox 05/23/24 19:10 97.8 F 78 17 115/67 98 05/23/24 18:28 63 16 113/73 99 05/23/24 18:00 60 16 108/70 98 05/23/24 17:45 62 16 112/73 96 05/23/24 17:30 58 L 16 120/74 96 05/23/24 17:15 62 16 118/74 100 05/23/24 17:00 97.7 F 63 16 124/77 99 05/23/24 14:09 98.0 F 67 16 128/79 95 Intake and Output 05/23/24 05/23/24 05/23/24 06:59 14:59 22:59 Intake Total 1261 118 Balance 1261 118 Intake: IV 1261 Oral 118 Other: Weight 97 kg 97 kg Results 05/23/24 14:02 05/23/24 14:02 Cardiac Enzymes 05/23/24 Range/Units 14:02 AST 30 (17-59) U/L CBC 05/23/24 Range/Units 14:02 WBC 6.1 (3.8-10.6) k/uL RBC 4.71 (4.30-5.90) m/uL Hgb 13.8 (13.0-17.5) gm/dL Hct 42.0 (39.0-53.0) % Plt Count 233 (150-450) k/uL Comprehensive Metabolic Panel 05/23/24 Range/Units 14:02 Sodium 137 (137-145) mmol/L Potassium 4.0 (3.5-5.1) mmol/L Chloride 102 (98-107) mmol/L Carbon Dioxide 28 (22-30) mmol/L BUN 18 (9-20) mg/dL Creatinine 0.81 (0.66-1.25) mg/dL Glucose 82 (74-99) mg/dL Calcium 9.3 (8.4-10.2) mg/dL AST 30 (17-59) U/L ALT 27 (4-49) U/L Alkaline Phosphatase 66 (38-126) U/L Total Protein 6.3 (6.3-8.2) g/dL Albumin 4.1 (3.5-5.0) g/dL Current Medications Generic Name Dose Route Start Last Admin Trade Name Freq PRN Reason Stop Dose Admin Dicyclomine HCl 20 mg 05/23/24 20:21 Dicyclomine 20 Mg Tab PO TID PRN GI Upset Hydromorphone HCl 0.5 mg 05/23/24 07:00 Hydromorphone 0.5 Mg/0.5 Ml Syringe IVP 05/23/24 23:00 Q5M PRN Phase 1 or 2 - Pain Control Sodium Chloride 1,000 mls @ 20 mls/hr 05/23/24 06:51 05/23/24 17:26 Saline 0.9% IV 06/22/24 06:50 Not Given .Q24H JESUS ALBERTO Lactated Ringer's 1,000 mls @ 20 mls/hr 05/23/24 06:51 05/23/24 17:26 Lactated Ringers IV 06/22/24 06:50 Not Given .Q24H JESUS ALBERTO Losartan Potassium 25 mg 05/24/24 09:00 Losartan 25 Mg Tab PO DAILY JESUS ALBRETO Midazolam HCl 2 mg 05/23/24 07:00 Midazolam 2 Mg/2 Ml Vial IV 05/23/24 23:00 ONCE PRN Pre-Op Anxiety Non-Formulary Medication 40 mg 05/23/24 21:00 Omeprazole [Omeprazole] PO BID JESUS ALBERTO Non-Formulary Medication 175 mcg 05/24/24 09:00 Levothyroxine Sodium [Synthroid] PO DAILY JESUS ALBERTO Non-Formulary Medication 1 film 05/23/24 21:00 Buprenorphine Hcl/Naloxone Hcl [Suboxone 8 Mg-2 Mg Sl Film] SL HS [facility] Non-Formulary Medication 20 mg 05/23/24 21:00 Dextroamphetamine/Amphetamine [Adderall] PO BID [facility] Tamsulosin HCl 0.4 mg 05/23/24 21:00 Tamsulosin 0.4 Mg Cap.Er.24h PO BID JESUS ALBERTO Intake and Output 05/23/24 05/23/24 05/23/24 06:59 14:59 22:59 Intake Total 1261 118 Balance 1261 118 Intake: IV 1261 Oral 118 Other: Weight 97 kg 97 kg Patient Weight 05/24/24 06:59 Weight 97 kg 05/23/24 14:02 05/23/24 14:02
--- NOTE | 2024-05-23 20:31 | P.EPPROC ---
- EP Procedure Note Electrophysiology Procedure Note: Diagnosis Frequent RVOT PVCs associated with global cardiomyopathy ejection fraction 45% Final diagnosis Septal RVOT PVCs, frequent Successful mapping and ablation of the PVCs with activation mapping and pace mapping PVCs initially inducible with Isopril, noninducible on high-dose Isopril at the end of the procedure Details Patient was brought to the EP lab in a fasting state. Written informed consent was obtained prior to the procedure. The right and left groins were prepped and draped as a protocol. Venous sheaths placed in the right left femoral veins. The patient was experiencing frequent PVCs that seem to be originating from the septum of the RVOT, high. An intracardiac catheter was placed. 3D anatomic mapping of the right ventricle pulmonic area in the aortic cusp was performed Diagnostic catheters were placed in the coronary sinus high right atrium His bundle area and right ventricle A mapping ablation catheter was placed in the right ventricle Sinus cycle length 1089 ms, CO interval 178 ms, QRS 108 ms and QT 425 ms AH 69 and HV interval 35 ms 3D electroanatomic mapping was performed and the PVCs were mapped with earliest activation of at least -40 ms There was also an area with fractionated electrograms just above the site. The earliest fractionated electrogram was even earlier Initially RF ablation was performed here after confirming a pace map of almost 98%. While this resulted in reduction of the PVC burden some PVCs still continued. Next this area fractionation just above this previous site was ablated. With mechanical pressure 1 could see suppression of PVCs. Good contact force of between 10 to 15 g and up to 40 W of power was used The PVCs were completely eliminated in the baseline state Following that burst stimulation was performed from the right ventricle. There was no inducible VT However on high-dose Isopril PVCs in a bigeminal pattern returned. These were identical to the clinical PVC Repeat mapping was performed and just a little above the original ablation site the earliest activation was found and RF ablation applied here with good contact force of about 12 to 14 g and 30 to 40 W of power resulted in complete illumination Thereafter high-dose Isopril could not induce any further PVCs AV node Wenckebach block 670 ms Atrial pacing performed from the coronary sinus from the high right atrium from the right ventricle. No other arrhythmias induced Patient Toller the procedure well without any acute complications No pericardial effusion noted at the end of the procedure on intracardiac echo
[2024-05-23] MEDS ORDERED: NON FORMULARY DRUG (Dextroamphetamine/Amphetamine [Adderall] 20 MG Tablet) PO SCH (21:00)
[2024-05-23] MEDS: PANTOPRAZOLE 40 MG TABLET PO SCH (21:26)
[2024-05-23] MEDS: TAMSULOSIN 0.4 MG CAP.ER.24H PO SCH (21:26)
[2024-05-24] MEDS: LEVOTHYROXINE 75 MCG TAB PO SCH (05:43)
[2024-05-24] MEDS: LEVOTHYROXINE 100 MCG TAB PO SCH (05:43)
[2024-05-24 06:24] VITALS: RESP 16
[2024-05-24 08:11] VITALS: BP 116/69; PULSE 58; TEMP 98.1
[2024-05-24] MEDS: LOSARTAN 25 MG TAB PO SCH (08:33)
--- NOTE | 2024-05-24 09:52 | P.DS ---
Providers Date of admission: 05/23/2024 Attending physician: Ismael Wynn Primary care physician: Reza De La Cruz MD Hospital Course: The patient is a 38-year-old male who follows in the office with Dr. Vences. Patient underwent PVC ablation yesterday with Dr. Wynn. Successful mapping and ablation of septal RVOT PVCs. PVCs were noninducible at the end of his procedure. Patient interviewed and examined in his room. He has been up ambulating. He denies any chest pain or chest pressure overnight. No difficulty breathing or orthopnea. No discomfort at his groin site GENERAL: Well-appearing, well-nourished and in no acute distress. NECK: Supple without JVD or thyromegaly. LUNGS: Breath sounds clear to auscultation bilaterally. Respiration equal and unlabored. No wheezes, rales or rhonchi. HEART: Regular rate and rhythm without murmurs, rubs or gallops. S1 and S2 heard. EXTREMITIES: Normal range of motion, no edema. No clubbing or cyanosis. Peripheral pulses intact and strong. Right groin site is clean dry and intact TELEMETRY: Sinus rhythm overnight IMPRESSION: Septal RVOT PVCs Status post ablation PLAN: Discontinue beta-bran Patient may be discharged for outpatient follow-up with primary industrial specialist in 1 week I am dictating on behalf of Dr Ismael Wynn's history/physical and assessment/plan. Plan - Discharge Summary Discharge Rx Participant: No New Discharge Prescriptions: Discontinued Metoprolol Succinate (ER) [Toprol Xl] 25 mg PO DAILY No Action Omeprazole 40 mg PO BID Levothyroxine Sodium [Synthroid] 175 mcg PO DAILY Ondansetron Odt [Zofran ODT] 4 mg PO Q8HR PRN #10 tab PRN Reason: Nausea Buprenorphine HCl/Naloxone HCl [Suboxone 8 mg-2 mg Sl Film] 1 film SL HS Tamsulosin [Flomax] 0.4 mg PO BID Dicyclomine HCl 20 mg PO TID PRN PRN Reason: Gi Upset Dextroamphetamine/Amphetamine [Adderall] 20 mg PO BID Losartan Potassium [Cozaar] 25 mg PO DAILY Discharge Medication List Levothyroxine Sodium [Synthroid] 175 mcg PO DAILY 08/20/17 [History] Omeprazole 40 mg PO BID 08/20/17 [History] Ondansetron Odt [Zofran ODT] 4 mg PO Q8HR PRN #10 tab 04/13/18 [Rx] Dextroamphetamine/Amphetamine [Adderall] 20 mg PO BID 07/08/21 [History] Buprenorphine HCl/Naloxone HCl [Suboxone 8 mg-2 mg Sl Film] 1 film SL HS 12/03/21 [History] Tamsulosin [Flomax] 0.4 mg PO BID 12/03/21 [History] Losartan Potassium [Cozaar] 25 mg PO DAILY 12/18/21 [History] Dicyclomine HCl 20 mg PO TID PRN 05/19/24 [History]
[2024-05-24] MEDS ORDERED: Buprenorphine Hcl/Naloxone Hcl [Suboxone 8 Mg-2 Mg Sl Film] 1 EACH Fil SUBLINGUAL SCH (21:00)
== END 2024-05-24 11:51 | disposition home or self-care (01) ==
LOC: CATHEP 12:49 → 6NMEDSUR 16:30 → CATHEP 05-24 11:51
PROVIDERS: ATTEND Internal Medicine Clinical Cardiac Electrophysiology
DX: I42.9 Cardiomyopathy, unspecified (principal); I44.1 Atrioventricular block, second degree; I49.3 Ventricular premature depolarization; F17.210 Nicotine dependence, cigarettes, uncomplicated; Z85.850 Personal history of malignant neoplasm of thyroid
CPT/HCPCS: 86900; 86901; 80053; 84443; 85025; 86850; 93654; C1759; C1894; C1769; C1760; C1730 ×3; C1732; J1644 ×2; J2003